=== PATIENT | female | born 2000 | race Native Hawaiian/Other Pacific Islander ===

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

== ENCOUNTER 2019-06-26 01:19 | Emergency (ER) | payer OTHER ==
[2019-06-26 01:38] VITALS: BP 122/88; PULSE 101; O2SAT 98
[2019-06-26] MEDS ORDERED: PERCOCET TABLET 5/325MG ONE (01:43)
[2019-06-26] MEDS ORDERED: BACTRIM DS TABLET PO ONE (01:43)
[2019-06-26] MEDS ORDERED: Rocephin 1000 MG INJ ONE (01:44)
[2019-06-26] MEDS ORDERED: XYLOCAINE 1% HCL 20 ML MDV ONE (01:44)
[2019-06-26] MEDS ORDERED: OXYCODONE-ACETAMINOPHEN 10-325 ONE (01:44)
[2019-06-26] MEDS: PERCOCET TABLET 5/325MG PO STA (01:46)
[2019-06-26] MEDS: BACTRIM DS TABLET PO ONE (01:46)
--- NOTE | 2019-06-26 01:46 | ERPHSYRPT ---
- History of Present Illness Time Seen by Provider: 06/26/19 01:35 Source: patient Exam Limitations: no limitations Patient Subjective Stated Complaint: Abscess to coccyx Triage Nursing Assessment: Patient ambulated into ED and states she is unable to sit or lay in a bed due to the pain. Patient A+O X3. Patient's skin pink, warm and dry. Patient complains of abscess to coccyx for one week. Patient states pain is constant stabbing 10/10. red raised area noted to coccyx with hard area. Physician History: 19 y/o white female presents with tenderness and swelling left buttock area. no drainage. present for a week. pt is not a diabetic. denies fever. Timing/Duration: week(s) (1) Quality: painful Severity: moderate Location: other (left buttock) Associated Symptoms: swelling/mass/lumps (left buttock) Allergies/Adverse Reactions: No Known Drug Allergies Allergy (Verified 06/26/19 01:30) Hx Tetanus, Diphtheria Vaccination/Date Given: Yes Hx Influenza Vaccination/Date Given: No Hx Pneumococcal Vaccination/Date Given: No Immunizations Up to Date: Yes - Review of Systems Constitutional: No Symptoms Eyes: No Symptoms Ears, Nose, & Throat: No Symptoms Respiratory: No Symptoms Cardiac: No Symptoms Abdominal/Gastrointestinal: No Symptoms Genitourinary Symptoms: No Symptoms Musculoskeletal: No Symptoms Skin: Cellulitis, Induration, Other (left buttock) Neurological: No Symptoms Psychological: No Symptoms Endocrine: No Symptoms Hematologic/Lymphatic: No Symptoms Immunological/Allergic: No Symptoms All Other Systems: Reviewed and Negative - Past Medical History Pertinent Past Medical History: No Neurological History: No Pertinent History ENT History: No Pertinent History Cardiac History: No Pertinent History Respiratory History: No Pertinent History Endocrine Medical History: No Pertinent History Musculoskeletal History: No Pertinent History GI Medical History: No Pertinent History History: No Pertinent History Psycho-Social History: No Pertinent History Female Reproductive Disorders: No Pertinent History - Past Surgical History Past Surgical History: Yes Neuro Surgical History: No Pertinent History Cardiac: No Pertinent History Respiratory: No Pertinent History Gastrointestinal: No Pertinent History Genitourinary: No Pertinent History Other Surgical History: T&A, nasal passages drilled 12 years ago. - Social History Smoking Status: Never smoker Exposure to second hand smoke: Yes Drug Use: none Patient Lives Alone: No - Female History Hx Last Menstrual Period: 2 months ago Hx Now: No - Nursing Vital Signs Nursing Vital Signs: Initial Vital Signs Temperature 97.9 F 06/26/19 01:31 Pulse Rate 101 H 06/26/19 01:31 Respiratory Rate 18 06/26/19 01:31 Blood Pressure 122/88 06/26/19 01:31 O2 Sat by Pulse Oximetry 98 06/26/19 01:31 Pain Scale Pain Intensity 10 - Physical Exam General Appearance: no apparent distress, alert, anxiety Eye Exam: PERRL/EOMI, eyes nml inspection Ears, Nose, Throat Exam: normal ENT inspection, moist mucous membranes Neck Exam: normal inspection, non-tender, supple, full range of motion Respiratory Exam: airway intact, No chest tenderness, No respiratory distress Gastrointestinal/Abdomen Exam: No tenderness Pelvic Exam: not done Rectal Exam: not done Back Exam: normal inspection, normal range of motion, No CVA tenderness, No vertebral tenderness Extremity Exam: normal inspection, normal range of motion, pelvis stable Neurologic Exam: alert, oriented x 3, cooperative, laboratory technologist II-XII nml as tested Skin Exam: other (tender red area of cellulitis without abscess or pus. left buttock indurated. no odor or drainage) SpO2 Interpretation: normal SpO2: 98 O2 Delivery: Room Air - Course Nursing assessment & vital signs reviewed: Yes - Progress Progress: unchanged Counseled pt/family regarding: diagnosis, need for follow-up, rad results - Departure Departure Disposition: Home Clinical Impression: Cellulitis of buttock, left Condition: Stable Critical Care Time: No Referrals: DOCTOR,NO FAMILY [Primary Care Provider] - Additional Instructions: sitz bath with warm soapy water and epsom salts two times daily. may also add warm compresses to area two times daily. return later today for wound check. Prescriptions: Hydrocodone/APAP 5-325 Tab^^^ [[place] 5-325 Tablet^^^] 1 tab PO Q6HPRN PRN #10 tablet MDD 6 PRN Reason: Pain Smz/Tmp Ds Tablet [Bactrim Ds Tablet] 1 udtab PO BID #14 tablet
[2019-06-26] MEDS: Rocephin 1000 MG INJ IM ONE (01:47)
[2019-06-26] MEDS ORDERED: EMLA Cream 5 GM TP ONE (01:50)
[2019-06-26] MEDS: OXYCODONE-ACETAMINOPHEN 10-325 PO STA (01:58)
[2019-06-26] MEDS: EMLA Cream 5 GM TP ONE (02:16)
== END 2019-06-26 02:16 | disposition home or self-care (01) ==
LOC: ED 01:19
DX: L03.317 Cellulitis of buttock (principal)
CPT/HCPCS: 96372; 99283; J0696; A9270-GY

== ENCOUNTER 2019-06-26 16:25 | Emergency (ER) | payer OTHER ==
--- NOTE | 2019-06-26 17:15 | ERPHSYRPT ---
- History of Present Illness Time Seen by Provider: 06/26/19 16:55 Source: patient Exam Limitations: no limitations Patient Subjective Stated Complaint: pt states that she came to er at 0100 on , pt states that she has soaked areaonce but has no relief of pain or drainage , states pain 04/28 Triage Nursing Assessment: pt ambulated into the er, pt has reddness to upper left buttox, scant yellow drainage present, area warm to the touch, vitals wnl Physician History: 19 years old female presented in the ER for reevaluation of swelling but the area/kennedy cleft area. She was evaluated last night, given antibiotics and now she has minimal discharge of yellow color. Pain is fairly controlled with pain medications. She has a temperature of 99 at home. He has been doing sitz bath. Quality: painful Severity: moderate Possible Causes: no cause identified Allergies/Adverse Reactions: No Known Drug Allergies Allergy (Verified 06/26/19 16:44) Hx Tetanus, Diphtheria Vaccination/Date Given: Yes Hx Influenza Vaccination/Date Given: No Hx Pneumococcal Vaccination/Date Given: No - Review of Systems Constitutional: No Symptoms Ears, Nose, & Throat: No Symptoms Respiratory: No Symptoms Cardiac: No Symptoms Abdominal/Gastrointestinal: No Symptoms Musculoskeletal: No Symptoms Skin: Cellulitis, Induration Neurological: No Symptoms - Past Medical History Pertinent Past Medical History: No Neurological History: No Pertinent History ENT History: No Pertinent History Cardiac History: No Pertinent History Respiratory History: No Pertinent History Endocrine Medical History: No Pertinent History Musculoskeletal History: No Pertinent History GI Medical History: No Pertinent History History: No Pertinent History Psycho-Social History: Depression Female Reproductive Disorders: No Pertinent History - Past Surgical History Past Surgical History: Yes Neuro Surgical History: No Pertinent History Cardiac: No Pertinent History Respiratory: No Pertinent History Gastrointestinal: No Pertinent History Genitourinary: No Pertinent History Other Surgical History: T&A, nasal passages drilled 12 years ago. - Social History Smoking Status: Never smoker Exposure to second hand smoke: Yes Drug Use: none Patient Lives Alone: No - Female History Hx Last Menstrual Period: 04/19/19 Hx Now: (possible) - Nursing Vital Signs Nursing Vital Signs: Initial Vital Signs Temperature 99.3 F 06/26/19 16:28 Pulse Rate 115 H 06/26/19 16:28 Blood Pressure 123/86 06/26/19 16:28 O2 Sat by Pulse Oximetry 97 10/08/19 16:28 Pain Scale Pain Intensity 8 - Physical Exam General Appearance: no apparent distress Eye Exam: eyes nml inspection Ears, Nose, Throat Exam: normal ENT inspection Neck Exam: normal inspection Respiratory Exam: normal breath sounds, lungs clear Cardiovascular Exam: regular rate/rhythm, normal heart sounds Back Exam: normal inspection Extremity Exam: normal inspection Neurologic Exam: alert, oriented x 3, cooperative, normal mood/affect Skin Exam: warm, other (swollen kennedy cleft area especially left buttock with erythema. Warm and tender to touch. No fluctuation. No discharge and applied pressure. Although patient has minimal discharge but no active from applying pressure.) SpO2 Interpretation: normal SpO2: 97 O2 Delivery: Room Air - Course Nursing assessment & vital signs reviewed: Yes Ordered Tests: Medication Summary Discontinued Medications Generic Name Dose Route Start Last Admin Trade Name Freq PRN Reason Stop Dose Admin Oxycodone/Acetaminophen 1 tab 06/26/19 17:29 Percocet Tablet 5/325mg PO 06/26/19 17:30 STAT ONE - Progress Progress: unchanged Progress Note: 06/26/19 17:36 she is given Percocet here for pain control. I have offered her incision and drainage but patient wants to try antibiotics first. As of right now she has no definite fever or color does not feel septic. I have discussed in detail about side symptoms are worsening return to ER but she seemed understanding. Recommended outpatient followup. Counseled pt/family regarding: diagnosis, need for follow-up - Departure Departure Disposition: Home Clinical Impression: Cellulitis of buttock, left Condition: Stable Critical Care Time: No Referrals: DOCTOR,NO FAMILY [Primary Care Provider] - Follow Up with PCP (primary care as per recommendations given. Call for appointment tomorrow) Instructions: Skin Abscess Additional Instructions: continue antibiotics and pain medication. Continue sitz baths, warm compresses. Followup with primary care for reevaluation. Return to ER for intractable pain/swelling/redness/fever chills etc.
[2019-06-26] MEDS ORDERED: PERCOCET TABLET 5/325MG ONE (17:32)
[2019-06-26] MEDS: PERCOCET TABLET 5/325MG PO ONE (17:33)
[2019-06-26 17:36] VITALS: BP 116/67
[2019-06-26 18:18] VITALS: PULSE 88; O2SAT 98
== END 2019-06-26 18:20 | disposition home or self-care (01) ==
LOC: ED 16:25
DX: L03.317 Cellulitis of buttock (principal)
CPT/HCPCS: 99283; A9270-GY

== ENCOUNTER 2019-06-28 09:31 | Emergency (ER) | payer OTHER ==
[2019-06-28] MEDS ORDERED: XYLOCAINE 1%/Epi 1:100000 MDV 20 ML ONE (09:40)
[2019-06-28] MEDS ORDERED: XYLOCAINE 1%/Epi 1:100000 MDV 20 ML IJ ONE ×2 (09:51→10:02)
--- NOTE | 2019-06-28 09:57 | ERPHSYRPT ---
- History of Present Illness Time Seen by Provider: 06/28/19 09:50 Source: patient, family, old records Exam Limitations: no limitations Patient Subjective Stated Complaint: pt reports abscess to the buttock for one week, reports she has been seen twice recently and prescribed bactrim. Triage Nursing Assessment: pt is aox3, pupils perrl, afebrile, resps easy and non labored, cap refill < 3 seconds, pt skin pink warm dry. reddened area noted to the coccyx with minimal purulent/serious drainage at this time. wound measures approx 4cm x 2cm. Physician History: pt is a 19 y/o female who presents c/o abscess to buttock x 1 week. on d#3 of bactrim. reports serosanguinous drainage. no purulence. + erythema. no warmth. no fever/chills/n/v/diarrhea. no cp/sob. no improvement on bactrim. has not had labs or imaging. seen in er for same. no prior referral to general surgery. no prior abscesses. no dm pmhx: denies pshx denies meds reviewed all nkda denies tob/etoh/illicits fhx non contrib employed Allergies/Adverse Reactions: No Known Drug Allergies Allergy (Verified 06/28/19 09:52) Hx Tetanus, Diphtheria Vaccination/Date Given: Yes Hx Influenza Vaccination/Date Given: No Hx Pneumococcal Vaccination/Date Given: No Immunizations Up to Date: Yes - Review of Systems Constitutional: No Symptoms, No Fever, No Chills, No Fatigue, No Lethargy, No Malaise, No Night Sweats, No Weakness, No Weight Loss Eyes: No Symptoms, No Discharge, No Eye Pain, No Eye Redness, No Itchy, No Photophobia, No Tearing, No Vision Changes, No Double Vision, No Foreign Body Sensation Ears, Nose, & Throat: No Symptoms, No Ear Pain, No Ear Discharge, No Hearing Changes, No Tinnitus, No Nose Congestion, No Nose Discharge, No Epistaxis, No Mouth Pain, No Mouth Swelling, No Throat Pain, No Throat Swelling, No Hoarse, No Painful Swallowing, No Stridor Respiratory: No Symptoms, No Cough, No Cyanosis, No Dyspnea, No Dyspnea on Exertion (GREEN), No Stridor, No Wheezing Cardiac: No Symptoms, No Chest Pain, No Edema, No Palpitations, No Syncope, No Orthopnea Abdominal/Gastrointestinal: No Symptoms, No Abdominal Pain, No Nausea, No Vomiting, No Diarrhea, No Constipation, No Hematemesis, No Hematochezia, No Melena, No Dysphagia, No Appetite Changes Genitourinary Symptoms: No Symptoms, No Dysuria, No Frequency, No Hematuria, No Hesitancy, No Incontinence, No Urgency, No Urinary Retention, No Flank Pain, No Menorrhagia, No , No Vaginal Bleeding, No Vaginal Discharge Musculoskeletal: No Symptoms, No Arthralgias, No Back Pain, No Neck Pain, No Deformity, No Fall, No Injury, No Joint Redness, No Joint Pain, No Joint Swelling, No Myalgias Skin: No Symptoms, Skin Lesions, No Cellulitis, No Decubiti, No Induration, No Pruritis, No Rash, No Dryness Neurological: No Symptoms, No Dizziness, No Focal Weakness, No Gait Changes, No Headache, No Irritability, No Lethargy, No Paralysis, No Parasthesia, No Seizure , No Sensory Changes, No Speech Changes, No Tics, No Tremors, No Vertigo Psychological: No Symptoms, No Alcohol Abuse, No Drug Abuse, No Anxiety, No Depression, No Suicidal Ideations, No Homicidal Ideations, No Emotional Lability , No Hallucinations, No Memory Loss, No Mood Changes Endocrine: No Symptoms, No Polyuria, No Polydipsia, No Hair Changes, No Cold Intolerance, No Excessive Sweating, No Goiter Hematologic/Lymphatic: No Symptoms, No Anemia, No Blood Clots, No Easy Bleeding , No Gum Bleeding, No Easy Bruising, No Adenopathy Immunological/Allergic: No Symptoms All Other Systems: Reviewed and Negative - Past Medical History Pertinent Past Medical History: No Neurological History: No Pertinent History ENT History: No Pertinent History Cardiac History: No Pertinent History Respiratory History: No Pertinent History Endocrine Medical History: No Pertinent History Musculoskeletal History: No Pertinent History GI Medical History: No Pertinent History History: No Pertinent History Psycho-Social History: Depression Female Reproductive Disorders: No Pertinent History - Past Surgical History Past Surgical History: Yes Neuro Surgical History: No Pertinent History Cardiac: No Pertinent History Respiratory: No Pertinent History Gastrointestinal: No Pertinent History Genitourinary: No Pertinent History Other Surgical History: T&A, nasal passages drilled 12 years ago. - Social History Smoking Status: Never smoker Exposure to second hand smoke: Yes Drug Use: none Patient Lives Alone: No - Female History Hx Last Menstrual Period: 04/19/19 Hx Now: (unk) - Nursing Vital Signs Nursing Vital Signs: Initial Vital Signs Temperature 98.0 F 06/28/19 09:36 Pulse Rate 93 H 06/28/19 09:36 Respiratory Rate 18 06/28/19 09:36 Blood Pressure 126/91 06/28/19 09:36 O2 Sat by Pulse Oximetry 98 06/28/19 09:36 Pain Scale Pain Intensity 9 - Physical Exam General Appearance: no apparent distress, alert Eye Exam: PERRL/EOMI, eyes nml inspection, other (fundi normal roman), No scleral icterus, No pale conjunctivae, No photophobia, No EOM palsy/anisocoria Ears, Nose, Throat Exam: normal ENT inspection, TMs normal, pharynx normal, TM abnormal (L), other (uvula midline, floor of mouth soft), No moist mucous membranes, No dry mucous membranes, No TM abnormal (R), No pharyngeal erythema, No tonsillar exudate Neck Exam: normal inspection, non-tender, supple, full range of motion, No meningismus, No mass, No Brudzinski, No Kernig's, No carotid bruit, No JVD, No limited range of motion, No lymphadenopathy, No midline tenderness, No thyromegaly Respiratory Exam: normal breath sounds, lungs clear, airway intact, No chest tenderness, No respiratory distress, No diminished breath sounds, No accessory muscle use, No prolonged expirations, No crackles/rales, No rhonchi, No wheezing , No stridor, No pleural rub Cardiovascular Exam: regular rate/rhythm, normal heart sounds, normal peripheral pulses, capillary refill <2 sec, No murmur, No friction rub, No gallop, No tachycardia, No bradycardia, No irregular, No capillary refill 2-3 sec, No capillary refill >3 sec, No edema, No pulse deficit Gastrointestinal/Abdomen Exam: soft, normal bowel sounds, No tenderness, No distention, No mass, No guarding, No ecchymosis, No pulsatile mass, No rebound, No hernia, No hepatomegaly, No organomegaly, No splenomegaly, No bruit Pelvic Exam: normal external exam Rectal Exam: deferred, other (pilonidal cyst v abscess with mild erythema, induration, no warmth, minimal fluctuance) Back Exam: normal inspection, normal range of motion, other (neg slr roman, no sacral anesthesia, dtr 2/4 roman patella), No CVA tenderness, No vertebral tenderness, No rash, No decreased range of motion, No muscle spasm, No point tenderness Extremity Exam: normal inspection, normal range of motion, pelvis stable, No amputations, No contusions, No calf tenderness, No deformities, No lacerations, No parasthesia, No paralysis, No inflammation, No joint swelling, No limited range of motion, No pedal edema, No swelling, No tenderness Neurologic Exam: alert, oriented x 3, cooperative, 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, normal mood/affect, nml cerebellar function, nml station & gait, sensation nml, No motor deficits, No sensory deficit, No disoriented, No confusion, No agitation, No uncooperative, No intoxicated appearance, No depressed mood/affect , No motor weakness, No facial droop, No slurred speech, No aphasia, No dysarthria, No abnormal gait, No abnormal cerebellar tests, No abnormal van driver helper II- XII, No EOM palsy Skin Exam: normal color, warm, dry, No rash, No petechiae, No jaundice, No abrasion, No cyanosis, No diaphoresis, No decubitus, No embolic lesions, No ecchymosis, No jaundice, No laceration, No mottled, No pale Lymphatic Exam: No adenopathy SpO2 Interpretation: normal SpO2: 98 O2 Delivery: Room Air Procedures - Incision and Drainage Anesthesia: 1% lidocaine w/epi cc's of anesthesia: 2 Blade Size: 10 I & D Procedure: sterile drapes applied, sterile dressing applied, gauze wick placed Results: small amount pus - Course Nursing assessment & vital signs reviewed: Yes Ordered Tests: Medication Summary Discontinued Medications Generic Name Dose Route Start Last Admin Trade Name Jessica PRN Reason Stop Dose Admin Lidocaine/Epinephrine Confirm 06/28/19 09:40 Xylocaine 1%/Epi [id number] Mdv 20 Ml Administered 06/28/19 09:41 Dose 5 ml .ROUTE .[facility] ONE Lidocaine/Epinephrine 5 ml 06/28/19 09:51 Xylocaine 1%/Epi [id number] Mdv 20 Ml IJ 06/28/19 09:52 STAT ONE - Progress Progress: unchanged (findings reviewed with pt. minimal pus. suspect pilonidal cyst. recommend fup gen surgery , cont bactrim. tylenol and motrin for discomfort. all questions answered to pt and family satisfaction) Counseled pt/family regarding: drug and/or alcohol abuse, lab results, diagnosis , need for follow-up, rad results, smoking cessation - Departure Departure Disposition: Home Clinical Impression: Pilonidal cyst Condition: Good Critical Care Time: No Referrals: DOCTOR,NO FAMILY [Primary Care Provider] - (DR. MADRID, GENERAL SURGERY 2-3 DAYS FOR RE-EVALUATION) Additional Instructions: TO ER IF INCREASED PURULENT DRAINAGE, FEVER OVER 102, INCREASED SIZE OF LESION CONTINUE BACTRIM TYLENOL AND MOTRIN FOR DISCOMFORT SITZ BATHS 2-3 X A DAY PLEASE FOLLOW UP WITH DR. MADRID OF GENERAL SURGERY FOR RE-EVALUATION AND DEFINITIVE CARE
[2019-06-28 10:48] VITALS: BP 122/67; PULSE 82; O2SAT 100
== END 2019-06-28 10:44 | disposition home or self-care (01) ==
LOC: ED 09:31
DX: L05.01 Pilonidal cyst with abscess (principal)
CPT/HCPCS: 10080; 82962; 96372; 99283

== ENCOUNTER 2019-09-30 11:45 | Emergency (ER) | payer MEDICAID, OTHER ==
--- NOTE | 2019-09-30 11:54 | ERPHSYRPT ---
- History of Present Illness Time Seen by Provider: 09/30/19 11:54 Source: patient Exam Limitations: no limitations Physician History: The patient is a 19-year-old female with a past history significant for a prior episode of low back pain in June 2019 percent with a chief complaint of low back pain. Onset reportedly was 2 weeks ago. The pain is described as a sharp pain located to the paralumbar spinous region of her back that radiates up her back is constant and is mild to moderate severity. She did take an ibuprofen as well as Tylenol intermittently with no reported relief of the pain. The pain increases with bending and twisting of her torso. She denies spread slightly to her back pain to include recent traumatic injury, fever, chills, bladder or bowel continence, anticoagulant use, malignancy, CVA, weight loss and night sweats. She denies lower extremity symptoms to include weakness numbness and paresthesias. 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 Allergies/Adverse Reactions: No Known Drug Allergies Allergy (Verified 06/28/19 09:52) Home Medications: Venlafaxine HCl 37.5 mg [Effexor 37.5 mg] 37.5 mg PO DAILY 09/30/19 [ History] Hx Tetanus, Diphtheria Vaccination/Date Given: Yes Hx Influenza Vaccination/Date Given: No Hx Pneumococcal Vaccination/Date Given: No - Review of Systems Constitutional: No Fever, No Chills Eyes: No Symptoms Ears, Nose, & Throat: No Symptoms Respiratory: No Symptoms Cardiac: No Symptoms Abdominal/Gastrointestinal: No Abdominal Pain, No Nausea, No Vomiting Genitourinary Symptoms: No Dysuria, No Frequency, No Hematuria, No Hesitancy, No Incontinence, No Urgency, No Urinary Retention, No Flank Pain, No Vaginal Bleeding, No Vaginal Discharge Musculoskeletal: Back Pain, No Neck Pain, No Deformity, No Fall, No Injury Skin: No Symptoms Neurological: No Focal Weakness, No Gait Changes, No Sensory Changes Psychological: No Symptoms Immunological/Allergic: No Symptoms All Other Systems: Reviewed and Negative - Past Medical History Pertinent Past Medical History: Yes Neurological History: No Pertinent History ENT History: No Pertinent History Cardiac History: No Pertinent History Respiratory History: No Pertinent History Endocrine Medical History: No Pertinent History Musculoskeletal History: No Pertinent History GI Medical History: No Pertinent History History: No Pertinent History Psycho-Social History: Depression Female Reproductive Disorders: No Pertinent History - Past Surgical History Past Surgical History: Yes Neuro Surgical History: No Pertinent History Cardiac: No Pertinent History Respiratory: No Pertinent History Gastrointestinal: No Pertinent History Genitourinary: No Pertinent History Other Surgical History: T&A, nasal passages drilled 12 years ago. - Social History Smoking Status: Never smoker Exposure to second hand smoke: Yes Drug Use: none Patient Lives Alone: No - Nursing Vital Signs Nursing Vital Signs: Initial Vital Signs Temperature 98.8 F 09/30/19 11:50 Pulse Rate 90 09/30/19 11:50 Respiratory Rate 18 09/30/19 11:50 Blood Pressure 129/76 09/30/19 11:50 O2 Sat by Pulse Oximetry 99 09/30/19 11:50 Pain Scale Pain Intensity [Lower Back] 8 Pain Intensity 4 - Physical Exam General Appearance: no apparent distress Eye Exam: PERRL/EOMI, eyes nml inspection Ears, Nose, Throat Exam: normal ENT inspection Neck Exam: normal inspection Respiratory Exam: normal breath sounds, lungs clear, No chest tenderness, No respiratory distress Cardiovascular Exam: regular rate/rhythm, normal heart sounds, capillary refill <2 sec, No murmur, No friction rub, No gallop, No tachycardia Gastrointestinal/Abdomen Exam: soft, normal bowel sounds, No tenderness Pelvic Exam: not done Rectal Exam: deferred Back Exam: other (Mild bilateral lumbar paraspinous tenderness. No midline spine tenderness, no flank ecchymosis) Extremity Exam: normal inspection, other (Hip flexion 4 + bilaterally, knee extension 4+bilaterally, dorsiflexion and plantar flexion 4+ bilaterally, patient able to stand on the tips of her toes, increased pain in back with back flexion), No pedal edema, No swelling, No tenderness Neurologic Exam: alert, oriented x 3, cooperative, normal mood/affect, other ( Sensation to gross touch intact in the L4, L5, and S1 nerve distribution, no ankle clonus, patellar reflex 2+ bilaterally, unable to illicit ankle reflexes. Negative straight leg test.) Skin Exam: normal color, warm, dry, No rash, No petechiae, No jaundice SpO2 Interpretation: normal O2 Delivery: Room Air Ordered Tests: Active Orders 24 hr Category Date Time Status HCG,QUALITATIVE URINE Stat Lab 09/30/19 12:03 Completed UA W/RFX UR CULTURE Stat Lab 09/30/19 12:03 Completed Medication Summary Discontinued Medications Generic Name Dose Route Start Last Admin Trade Name Jessica PRN Reason Stop Dose Admin Hydrocodone Bitart/Acetaminophen 1 tab 09/30/19 12:37 09/30/19 12:43 [place] 5/325 Mg PO 09/30/19 12:38 1 tab STAT ONE Administration Hydrocodone Bitart/Acetaminophen Confirm 09/30/19 12:41 [place] 5/325 Mg Administered 09/30/19 12:42 Dose 1 tab .ROUTE .[facility] ONE Hydromorphone HCl 0.5 mg 09/30/19 12:37 09/30/19 12:43 Hydromorphone 1 Mg/Ml Ampule IM 09/30/19 12:38 0.5 mg STAT ONE Administration Hydromorphone HCl Confirm 09/30/19 12:41 Hydromorphone 1 Mg/Ml Ampule Administered 09/30/19 12:42 Dose 1 mg .ROUTE .STK-[facility] ONE Ketorolac Tromethamine 15 mg 09/30/19 12:37 09/30/19 12:42 Toradol 30 Mg Injection IM 09/30/19 12:38 15 mg STAT ONE Administration Ketorolac Tromethamine Confirm 09/30/19 12:40 Toradol 30 Mg Injection Administered 09/30/19 12:41 Dose 30 mg .ROUTE .STK-MED ONE Ondansetron HCl 4 mg 09/30/19 12:38 09/30/19 12:43 Zofran Odt 4 Mg PO 09/30/19 12:39 4 mg STAT ONE Administration Ondansetron HCl Confirm 09/30/19 12:40 Zofran Odt 4 Mg Administered 09/30/19 12:41 Dose 4 mg .ROUTE .STK-[facility] ONE Lab/Rad Data: Laboratory Results 09/30/19 09/30/19 Range/Units 12:03 12:03 Urine Color YELLOW (YELLOW) Urine Appearance SLIGHTLY CLOUDY (CLEAR) Urine pH 5.0 (5-6) Ur Specific [place] 1.018 (1.005-1.025) Urine Protein NEGATIVE (Negative) Urine Ketones TRACE (NEGATIVE) Urine Blood LARGE (0-5) Deejay/ul Urine Nitrite NEGATIVE (NEGATIVE) Urine Bilirubin NEGATIVE (NEGATIVE) Urine Urobilinogen NEGATIVE (0-1) mg/dL Ur Leukocyte Esterase NEGATIVE (NEGATIVE) Urine WBC (Auto) 3-5 (0-5) /HPF Urine RBC (Auto) NONE (0-2) /HPF U Epithel Cells (Auto) RARE (FEW) /HPF Urine Bacteria (Auto) NONE SEEN (NEGATIVE) /HPF Urine Mucus (Auto) SLIGHT (NEGATIVE) /HPF Urine Culture Reflexed NO (NO) Urine Glucose NEGATIVE (NEGATIVE) mg/dL Urine HCG, Qual NEGATIVE (Negative) - Progress Progress: improved Counseled pt/family regarding: lab results, diagnosis, need for follow-up - Departure Departure Disposition: Home Clinical Impression: Back pain, Strain of lumbar paraspinal muscle Condition: Stable Critical Care Time: No Referrals: DOCTOR,NO FAMILY [Primary Care Provider] - Instructions: Low Back Pain (DC) Plan of Treatment: nontoxic in appearance. The patient presents with low back pain with no red flags for LORRAINE, spinal epidural abscess or spinal cord hematoma. Pain resolved with symptomatic treatment in ED. Patient will be treated with conservative management and I recommended she follow-up with her PCP to arrange outpatient PT. ED return precautions for back pain given. She agreed with and verbally understood the discharge plan. Prescriptions: Hydrocodone/APAP 5-325 Tab^^^ [[place] 5-325 Tablet^^^] 1 tab PO Q6HPRN PRN #10 tablet MDD 6 PRN Reason: Pain Lidocaine 1 each TP DAILY #20 adh..patch Naproxen 500 mg [Naprosyn 500 MG] 500 mg PO BID #10 tablet
[2019-09-30 12:11] LABS: Appearance SLIGHTLY CLOUDY (CLEAR); Bilirubin NEGATIVE (NEGATIVE); Blood LARGE Ery/ul (0-5); Epithelial Cells RARE /HPF (FEW); Glucose NEGATIVE (NEGATIVE); Ketones TRACE (NEGATIVE); Leukocyte Esterase NEGATIVE (NEGATIVE); Mucus SLIGHT /HPF (NEGATIVE); Nitrite NEGATIVE (NEGATIVE); Protein,Urine Dip NEGATIVE (Negative); Specific Gravity 1.018 (1.005-1.025); Urobilinogen NEGATIVE mg/dL (0-1)
[2019-09-30 12:13] LABS: Bacteria NONE SEEN /HPF (NEGATIVE)
[2019-09-30] MEDS ORDERED: Hydromorphone 1 mg/ml Ampule IM ONE (12:37)
[2019-09-30] MEDS ORDERED: NORCO 5/325 MG PO ONE (12:37)
[2019-09-30] MEDS ORDERED: TORAdol 30 mg Injection IM ONE (12:37)
[2019-09-30 12:38] VITALS: PULSE 81
[2019-09-30] MEDS ORDERED: ZOFRAN ODT 4 MG PO ONE (12:38)
[2019-09-30] MEDS ORDERED: TORAdol 30 mg Injection ONE (12:40)
[2019-09-30] MEDS ORDERED: ZOFRAN ODT 4 MG ONE (12:40)
[2019-09-30] MEDS ORDERED: Hydromorphone 1 mg/ml Ampule ONE (12:41)
[2019-09-30] MEDS ORDERED: NORCO 5/325 MG ONE (12:41)
[2019-09-30 13:06] VITALS: BP 126/82; O2SAT 96
== END 2019-09-30 13:15 | disposition home or self-care (01) ==
LOC: ED 11:45
DX: M54.5 Low back pain (principal); S39.012A Strain of muscle, fascia and tendon of lower back, initial encounter; Z79.899 Other long term (current) drug therapy
CPT/HCPCS: 81001; 84703; 96372; 99284; J1170; J1885; Q0162; A9270-GY

== ENCOUNTER 2020-09-14 00:56 | Emergency (ER) | payer OTHER ==
--- NOTE | 2020-09-14 01:41 | ERPHSYRPT ---
- History of Present Illness Time Seen by Provider: 09/14/20 01:36 Historian: patient, family Exam Limitations: no limitations Patient Subjective Stated Complaint: pt states she has been vomiting for the last 4 days. states she is approx 5 weeks . Triage Nursing Assessment: pt alert and oriented, answers questions approp. pt ambulatory with steady gait noted. respirations nonlabored with lungs cta. skin pink warm and dry. pt states no vaginal bleeding or spotting. Physician History: pt estimates 5 weeks by period and has had N/V x 5 days. some abd cramping without bleeding . prior miscarriage at 10 weeks. discussed risk/benefit of ondansitron vs phenergan and also metaclopramide ( due to interaction with her other meds with metaclopramide, ) and pt chooses phenergan first then metaclopramide if not sucessful ( she has been off of her antidepressant for 5 weeks - so no longer an interaction.. Timing/Duration: day(s) Activities at Onset: none Quality: cramping Abdominal Pain Onset Location: RLQ, LLQ Pain Radiation: RLQ, LLQ Severity of Pain-Max: mild Modifying Factors: Improves With: nothing Associated Symptoms: nausea, vomiting Previous symptoms: no prior history Allergies/Adverse Reactions: No Known Drug Allergies Allergy (Verified 09/14/20 01:36) Hx Tetanus, Diphtheria Vaccination/Date Given: Yes Hx Influenza Vaccination/Date Given: Yes Hx Pneumococcal Vaccination/Date Given: No Immunizations Up to Date: Yes Travel Risk - International Travel Have you traveled outside of the country in past 3 weeks: No - Coronavirus Screening Are you exhibiting any of the following symptoms?: No Close contact with a COVID-19 positive Pt in past 14-21 Days: No - Review of Systems Constitutional: No Fever, No Chills Eyes: No Symptoms Ears, Nose, & Throat: No Symptoms Respiratory: No Cough, No Dyspnea Cardiac: No Chest Pain, No Edema, No Syncope Abdominal/Gastrointestinal: Nausea, Vomiting, No Abdominal Pain, No Diarrhea Genitourinary Symptoms: No Dysuria Musculoskeletal: No Back Pain, No Neck Pain Skin: No Rash Neurological: No Dizziness, No Focal Weakness, No Sensory Changes Psychological: No Symptoms Endocrine: No Symptoms Hematologic/Lymphatic: No Symptoms Immunological/Allergic: No Symptoms All Other Systems: Reviewed and Negative - Past Medical History Pertinent Past Medical History: Yes Neurological History: No Pertinent History ENT History: No Pertinent History Cardiac History: No Pertinent History Respiratory History: No Pertinent History Endocrine Medical History: No Pertinent History Musculoskeletal History: No Pertinent History GI Medical History: No Pertinent History History: No Pertinent History Psycho-Social History: Depression Female Reproductive Disorders: No Pertinent History - Past Surgical History Past Surgical History: Yes Neuro Surgical History: No Pertinent History Cardiac: No Pertinent History Respiratory: No Pertinent History Gastrointestinal: No Pertinent History Genitourinary: No Pertinent History Other Surgical History: T&A, nasal passages drilled 12 years ago. - Social History Smoking Status: Never smoker How long have you smoked: years Exposure to second hand smoke: Yes Drug Use: none Patient Lives Alone: No - Female History Hx Last Menstrual Period: 08/07/20 Hx Now: Yes Gestational Age: approx 5wk - Nursing Vital Signs Nursing Vital Signs: Initial Vital Signs Temperature 98.2 F 09/14/20 01:18 Pulse Rate 99 H 09/14/20 01:18 Respiratory Rate 18 09/14/20 01:18 Blood Pressure 124/82 09/14/20 01:18 O2 Sat by Pulse Oximetry 100 09/14/20 01:18 Pain Scale Pain Intensity 0 - Physical Exam General Appearance: no apparent distress, alert Eye Exam: PERRL/EOMI, eyes nml inspection Ears, Nose, Throat Exam: normal ENT inspection, pharynx normal, moist mucous membranes Neck Exam: normal inspection, non-tender, supple, full range of motion Respiratory Exam: normal breath sounds, lungs clear, No respiratory distress Cardiovascular Exam: regular rate/rhythm, normal heart sounds Gastrointestinal/Abdomen Exam: soft, No tenderness, No mass Pelvic Exam: deferred Rectal Exam: deferred Back Exam: normal inspection, normal range of motion, No CVA tenderness, No vertebral tenderness Extremity Exam: normal inspection, normal range of motion, pelvis stable Neurologic Exam: alert, oriented x 3, cooperative, normal mood/affect, nml cerebellar function, sensation nml, No motor deficits Skin Exam: normal color, warm, dry SpO2 Interpretation: normal SpO2: 100 O2 Delivery: Room Air - Course Nursing assessment & vital signs reviewed: Yes - Radiology Ultrasound Exam OB Ultrasound: IUP, Other (ovarian cyst, no ectopics reported) Ordered Tests: Active Orders 24 hr Category Date Time Status IV Insertion STAT Care 09/14/20 01:42 Active OB <14 WKS 1ST GESTATION [US] Stat Exams 09/14/20 01:45 Taken OB TRANSVAGINAL [US] Stat Exams 09/14/20 03:12 Taken AMYLASE Stat Lab 09/14/20 02:32 Completed CBC W DIFF Stat Lab 09/14/20 02:32 Completed CMP Stat Lab 09/14/20 02:32 Completed HCG, Quantitative (Inhouse) Stat Lab 09/14/20 02:32 Completed LIPASE Stat Lab 09/14/20 02:32 Completed Lactic Acid Stat Lab 09/14/20 02:28 Completed UA W/RFX UR CULTURE Stat Lab 09/14/20 02:16 Completed Medication Summary Discontinued Medications Generic Name Dose Route Start Last Admin Trade Name Freq PRN Reason Stop Dose Admin Dicyclomine HCl 20 mg 09/14/20 03:15 09/14/20 03:53 Bentyl 20 Mg PO 09/14/20 03:16 20 mg STAT ONE Administration Dicyclomine HCl Confirm 09/14/20 03:30 Bentyl 20 Mg Administered 09/14/20 03:31 Dose 20 mg .ROUTE .STK-MED ONE Sodium Chloride 1,000 mls @ 999 mls/hr 09/14/20 01:42 Sodium Chloride 0.9% 1000 Ml IV 09/14/20 02:42 .Q1H1M STA Ondansetron HCl 4 mg 09/14/20 01:42 Zofran 4 Mg/2 Ml Vial IV 09/14/20 01:43 STAT ONE Promethazine HCl 50 mg 09/14/20 02:04 09/14/20 02:07 Phenergan 25 Mg Inj IM 09/14/20 02:05 50 mg STAT ONE Administration Promethazine HCl Confirm 09/14/20 02:06 Phenergan 25 Mg Inj Administered 09/14/20 02:07 Dose 50 mg .ROUTE .STK-MED ONE Promethazine HCl Confirm 09/14/20 02:21 Phenergan 25 Mg Inj Administered 09/14/20 02:22 Dose 50 mg .ROUTE .STK-MED ONE Lab/Rad Data: Laboratory Result Diagrams 09/14/20 02:32 09/14/20 02:32 Laboratory Results 12/27/20 12/27/20 12/27/20 Range/Units 02:32 02:32 02:32 WBC 9.5 (4.0-10.5) K/mm3 RBC 4.07 L (4.1-5.4) M/mm3 Hgb 13.3 (12.0-16.0) gm/dl Hct 37.8 (35-47) % MCV 92.9 (78-100) fl MCH 32.7 H (26-32) pg MCHC 35.2 (32-36) g/dl RDW 11.9 (11.5-14.0) % Plt Count 233 (150-450) K/mm3 MPV 10.9 (7.5-11.0) fl Gran % 72.7 H (36.0-66.0) % Eos # (Auto) 0.03 (0-0.5) Absolute Lymphs (auto) 1.76 (1.0-4.6) Absolute Monos (auto) 0.80 (0.0-1.3) Lymphocytes % 18.5 L (24.0-44.0) % Monocytes % 8.4 (0.0-12.0) % Eosinophils % 0.3 (0.00-5.0) % Basophils % 0.1 (0.0-0.4) % Absolute Granulocytes 6.93 H (1.4-6.9) Basophils # 0.01 (0-0.4) Sodium 136 L (137-145) mmol/L Potassium 3.6 (3.5-5.1) mmol/L Chloride 103 (98-107) mmol/L Carbon Dioxide 22 (22-30) mmol/L Anion Gap 14.7 (5-15) MEQ/L BUN 9 (7-17) mg/dL Creatinine 0.70 (0.52-1.04) mg/dL Estimated GFR > 60.0 ML/MIN Glucose 92 (74-106) mg/dL Lactic Acid (0.4-2.0) Calcium 9.4 (8.4-10.2) mg/dL Total Bilirubin 0.30 (0.2-1.3) mg/dL AST 28 (14-36) U/L ALT 21 (0-35) U/L Alkaline Phosphatase 42 (38-126) U/L Serum Total Protein 7.7 (6.3-8.2) g/dL Albumin 4.6 (3.5-5.0) g/dL Amylase 65 (30-110) U/L Lipase 87 (23-300) U/L Beta HCG, Quant 27912 mIU/ml Urine Color (YELLOW) Urine Appearance (CLEAR) Urine pH (5-6) Ur Specific [place] (1.005-1.025) Urine Protein (Negative) Urine Ketones (NEGATIVE) Urine Blood (0-5) Deejay/ul Urine Nitrite (NEGATIVE) Urine Bilirubin (NEGATIVE) Urine Urobilinogen (0-1) mg/dL Ur Leukocyte Esterase (NEGATIVE) Urine WBC (Auto) (0-5) /HPF Urine RBC (Auto) (0-2) /HPF U Epithel Cells (Auto) (FEW) /HPF Urine Bacteria (Auto) (NEGATIVE) /HPF Calcium Oxalate Crystal (NEGATIVE) /HPF Urine Mucus (Auto) (NEGATIVE) /HPF Urine Culture Reflexed (NO) Urine Glucose (NEGATIVE) mg/dL 09/14/20 09/14/20 Range/Units 02:28 02:16 WBC (4.0-10.5) K/mm3 RBC (4.1-5.4) M/mm3 Hgb (12.0-16.0) gm/dl Hct (35-47) % MCV (78-100) fl MCH (26-32) pg MCHC (32-36) g/dl RDW (11.5-14.0) % Plt Count (150-450) K/mm3 MPV (7.5-11.0) fl Gran % (36.0-66.0) % Eos # (Auto) (0-0.5) Absolute Lymphs (auto) (1.0-4.6) Absolute Monos (auto) (0.0-1.3) Lymphocytes % (24.0-44.0) % Monocytes % (0.0-12.0) % Eosinophils % (0.00-5.0) % Basophils % (0.0-0.4) % Absolute Granulocytes (1.4-6.9) Basophils # (0-0.4) Sodium (137-145) mmol/L Potassium (3.5-5.1) mmol/L Chloride (98-107) mmol/L Carbon Dioxide (22-30) mmol/L Anion Gap (5-15) MEQ/L BUN (7-17) mg/dL Creatinine (0.52-1.04) mg/dL Estimated GFR ML/MIN Glucose (74-106) mg/dL Lactic Acid 0.8 (0.4-2.0) Calcium (8.4-10.2) mg/dL Total Bilirubin (0.2-1.3) mg/dL AST (14-36) U/L ALT (0-35) U/L Alkaline Phosphatase (38-126) U/L Serum Total Protein (6.3-8.2) g/dL Albumin (3.5-5.0) g/dL Amylase (30-110) U/L Lipase (23-300) U/L Beta HCG, Quant mIU/ml Urine Color DARK YELLOW (YELLOW) Urine Appearance SLIGHTLY CLOUDY (CLEAR) Urine pH 5.0 (5-6) Ur Specific [place] 1.032 (1.005-1.025) Urine Protein 100 (Negative) Urine Ketones MODERATE (NEGATIVE) Urine Blood NEGATIVE (0-5) Deejay/ul Urine Nitrite NEGATIVE (NEGATIVE) Urine Bilirubin NEGATIVE (NEGATIVE) Urine Urobilinogen 2 (0-1) mg/dL Ur Leukocyte Esterase NEGATIVE (NEGATIVE) Urine WBC (Auto) 6-10 (0-5) /HPF Urine RBC (Auto) 3-5 (0-2) /HPF U Epithel Cells (Auto) RARE (FEW) /HPF Urine Bacteria (Auto) RARE (NEGATIVE) /HPF Calcium Oxalate Crystal 6-10 (NEGATIVE) /HPF Urine Mucus (Auto) SLIGHT (NEGATIVE) /HPF Urine Culture Reflexed NO (NO) Urine Glucose NEGATIVE (NEGATIVE) mg/dL - Progress Progress: improved, re-examined Progress Note: 09/14/20 04:[address] Michael and pt, and now that vomiting has subsided and pt wishes to try fluids and oral dicyclomine at home rather than furhter obs in hosp/IV. and she has the capacity to make that choice. She will followup on Sep [address] Michael or meantime if not improving . Discussed with : Rogelio, Other Counseled pt/family regarding: lab results, diagnosis, need for follow-up, rad results - Departure Departure Disposition: Home Clinical Impression: Vomiting during Condition: Good Critical Care Time: No Referrals: CANDICE MICHAEL DO [Primary Care Provider] - Instructions: Nausea and Vomiting of (DC) Additional Instructions: take clear liquids and crackers as tolerated today, and new medicine as prescribed. Plan to see your OB as planned. Return meantime if not improving, vomiting continues, abdominal pain , bleeding or any other concerns. Followup urine which had slight protein ( there are slight increased white cells which is sometimes early infection) and ovarian cyst with your Dr. as well. Prescriptions: Doxylamine Succinate/Vit B6 [Tulio Her 10-10 mg Tablet] 1 each PO BID #30 tablet.
[2020-09-14] MEDS ORDERED: Sodium Chloride 0.9% 1000 ML 1,000 ML IV STA ×3 (01:42→07:31)
[2020-09-14] MEDS ORDERED: Zofran 4 MG/2 ML VIAL IV ONE ×2 (01:42→06:49)
[2020-09-14] MEDS ORDERED: Phenergan 25 MG INJ IM ONE (02:04)
[2020-09-14] MEDS ORDERED: Phenergan 25 MG INJ ONE ×3 (02:06→05:07)
[2020-09-14 02:34] LABS: Absolute Neutrophil Ct (ANC) 6.93 (1.4-6.9); BASOPHIL % 0.1 % (0.0-0.4); Basophil (Absolute #) 0.01 (0-0.4); Eosinophil % 0.3 % (0.00-5.0); Eosinophil (Absolute #) 0.03 (0-0.5); Hematocrit 37.8 % (35-47); Hemoglobin 13.3 gm/dl (12.0-16.0); Lymphocyte (Absolute #) 1.76 (1.0-4.6); Lymphocytes % 18.5 % (24.0-44.0); Mean Cell Volume 92.9 fl (78-100); Mean Corpuscular Hemoglobin 32.7 pg (26-32); Mean Corpuscular Hgb Concent. 35.2 g/dl (32-36); Mean Platelet Volume 10.9 fl (7.5-11.0); Monocytes % 8.4 % (0.0-12.0); Neutrophil % 72.7 % (36.0-66.0); Platelet Count 233 K/mm3 (150-450); Red Blood Count 4.07 M/mm3 (4.1-5.4); Red Cell Distribution Width 11.9 % (11.5-14.0); White Blood Count 9.5 K/mm3 (4.0-10.5)
[2020-09-14 02:43] LABS: Appearance SLIGHTLY CLOUDY (CLEAR); Bacteria RARE /HPF (NEGATIVE); Bilirubin NEGATIVE (NEGATIVE); Blood NEGATIVE Ery/ul (0-5); Epithelial Cells RARE /HPF (FEW); Glucose NEGATIVE (NEGATIVE); Ketones MODERATE (NEGATIVE); Leukocyte Esterase NEGATIVE (NEGATIVE); Mucus SLIGHT /HPF (NEGATIVE); Nitrite NEGATIVE (NEGATIVE); Protein,Urine Dip 100 (Negative); Specific Gravity 1.032 (1.005-1.025); Urobilinogen 2 mg/dL (0-1)
[2020-09-14 02:49] LABS: ALBUMIN 4.6 g/dL (3.5-5.0); ALKALINE PHOSPHATASE 42 U/L (38-126); AMYLASE 65 U/L (30-110); ANION GAP 14.7 MEQ/L (5-15); BLOOD UREA NITROGEN 9 mg/dL (7-17); CHLORIDE 103 mmol/L (98-107); Calcium 9.4 mg/dL (8.4-10.2); Carbon Dioxide 22 mmol/L (22-30); EST GLOMERULAR FILTRATION RATE > 60.0 ML/MIN; Glucose 92 mg/dL (74-106); LIPASE 87 U/L (23-300); Potassium 3.6 mmol/L (3.5-5.1); SGOT/AST 28 U/L (14-36); SGPT/ALT 21 U/L (0-35); SODIUM 136 mmol/L (137-145); Total Protein 7.7 g/dL (6.3-8.2)
[2020-09-14] MEDS ORDERED: BENTYL 20 MG PO ONE (03:15)
[2020-09-14] MEDS ORDERED: BENTYL 20 MG ONE (03:30)
[2020-09-14] MEDS ORDERED: Phenergan 25 MG INJ IV ONE (05:06)
[2020-09-14] MEDS ORDERED: Sodium Chloride 0.9% 1000 ML 1,000 ML ONE ×2 (06:47→07:53)
[2020-09-14] MEDS ORDERED: Zofran 4 MG/2 ML VIAL ONE (06:47)
[2020-09-14 08:02] VITALS: BP 115/71; PULSE 88; O2SAT 98
--- NOTE | 2020-09-14 09:04 | XRAY ---
Indication: Vomiting. 5 weeks . Two-dimensional transabdominal early OB ultrasound performed. Comparison: None for this . Uterus anteverted with single intrauterine gestational sac with mean sac diameter 1.32 cm corresponding to 6 weeks 0 days. No pole/heart tones. Left ovary demonstrates 3.1 cm cyst. Right ovary unremarkable. Small cul-de-sac fluid. No suspicious adnexal mass. Impression: Single intrauterine gestational sac measuring 6 weeks 0 days. No pole/heart tones presumed early . Correlate with surgical beta-hCG and follow-up sonogram regarding viability. 3.1 cm left ovary cyst, probably corpus luteal cyst. Comment: Preliminary report was given.
--- NOTE | 2020-09-14 09:06 | XRAY ---
Indication: Vomiting. 5 weeks . Two-dimensional transvaginal early OB ultrasound performed. Comparison: None for this . Uterus anteverted with single intrauterine gestational sac with mean sac diameter 1.22 cm corresponding to 5 weeks 6 days. Yolk sac but no pole/heart tones. Left ovary demonstrates a 4.6 cm anechoic cyst with tiny free fluid. Right ovary unremarkable. No suspicious adnexal mass. Impression: Single intrauterine gestational sac measuring 5 weeks 6 days with yolk sac. No pole/heart tones presumed early . Correlate with surgical beta-hCG and follow-up sonogram regarding viability. Probable left corpus luteal cyst. Comment: Preliminary report was given.
== END 2020-09-14 09:19 | disposition home or self-care (01) ==
LOC: ED 00:56
DX: O21.0 Mild hyperemesis gravidarum (principal); Z3A.01 Less than 8 weeks gestation of pregnancy
CPT/HCPCS: 36000; 36415; 76801; 76817; 80053; 81001; 82150; 83605; 83690; 84702; 85025; 96360; 96361; 96372; 96374; 99285; J2405; J2550; A9270-GY

== ENCOUNTER 2020-12-20 17:39 | Emergency (ER) | payer OTHER ==
--- NOTE | 2020-12-20 19:05 | ERPHSYRPT ---
- History of Present Illness Time Seen by Provider: 12/20/20 19:01 Historian: patient, family Exam Limitations: no limitations Patient Subjective Stated Complaint: Pt states "My upper abdomen has been cramping all day. I recently broke up with my boyfriend whom I have two other children with and I am under allot of stress." Triage Nursing Assessment: Pt presented alert and oriented X 3, skin wpd Pt ambulates with an upright steady gait, able to speak in clear full sentences pt in no apparent respiratory distress. Physician History: pt has 19 week with pain in abd today and prior bleeding but none today. has had yeast infections with some still residual. right breast mild tenderness , without erythema or palpable abscess/induration. general abd tenderness. no peritoneal signs. N but no vomiting at this time. Timing/Duration: today Quality: cramping, fullness, pressure Abdominal Pain Onset Location: epigastric, generalized abdomen Pain Radiation: RLQ, LLQ Severity of Pain-Max: moderate Severity of Pain-Current: moderate Modifying Factors: Improves With: nothing Associated Symptoms: nausea, No vomiting Previous symptoms: different symptoms Allergies/Adverse Reactions: No Known Drug Allergies Allergy (Verified 12/20/20 18:29) Home Medications: Propylthiouracil 50 mg PO DAILY 12/20/20 [History] Sertraline HCl 50 mg [Zoloft 50 mg Tablet] 50 mg PO DAILY 12/20/20 [History] Hx Tetanus, Diphtheria Vaccination/Date Given: Yes Hx Influenza Vaccination/Date Given: Yes Hx Pneumococcal Vaccination/Date Given: No Immunizations Up to Date: Yes Travel Risk - International Travel Have you traveled outside of the country in past 3 weeks: No - Coronavirus Screening Are you exhibiting any of the following symptoms?: No Close contact with a COVID-19 positive Pt in past 14-21 Days: No - Vaccine Status Have you recieved a Covid-19 vaccination: No - Review of Systems Constitutional: No Fever, No Chills Eyes: No Symptoms Ears, Nose, & Throat: No Symptoms Respiratory: No Cough, No Dyspnea Cardiac: No Chest Pain, No Edema, No Syncope Abdominal/Gastrointestinal: No Abdominal Pain, No Nausea, No Vomiting, No Diarrhea Genitourinary Symptoms: No Dysuria Musculoskeletal: No Back Pain, No Neck Pain Skin: No Rash Neurological: No Dizziness, No Focal Weakness, No Sensory Changes Psychological: No Symptoms Endocrine: No Symptoms All Other Systems: Reviewed and Negative - Past Medical History Pertinent Past Medical History: Yes Neurological History: No Pertinent History ENT History: No Pertinent History Cardiac History: No Pertinent History Respiratory History: No Pertinent History Endocrine Medical History: No Pertinent History Musculoskeletal History: No Pertinent History GI Medical History: No Pertinent History History: No Pertinent History Psycho-Social History: Depression Female Reproductive Disorders: No Pertinent History - Past Surgical History Past Surgical History: Yes Neuro Surgical History: No Pertinent History Cardiac: No Pertinent History Respiratory: No Pertinent History Gastrointestinal: No Pertinent History Genitourinary: No Pertinent History Other Surgical History: T&A, nasal passages drilled 12 years ago. - Social History Smoking Status: Former smoker How long have you smoked: years Exposure to second hand smoke: Yes Drug Use: none Patient Lives Alone: No - Female History Hx Last Menstrual Period: 07/21/2020 Hx Now: Yes Expected Date of Delivery: 05/14/21 - Nursing Vital Signs Nursing Vital Signs: Initial Vital Signs Temperature 98.3 F 12/20/20 17:49 Pulse Rate 118 H 12/20/20 17:49 Respiratory Rate 20 12/20/20 17:49 Blood Pressure 118/68 12/20/20 17:49 O2 Sat by Pulse Oximetry 98 12/20/20 17:49 Pain Scale Pain Intensity 6 - Physical Exam General Appearance: no apparent distress, alert Eye Exam: PERRL/EOMI, eyes nml inspection Ears, Nose, Throat Exam: normal ENT inspection, pharynx normal, moist mucous membranes Neck Exam: normal inspection, non-tender, supple, full range of motion Respiratory Exam: normal breath sounds, lungs clear, No respiratory distress Cardiovascular Exam: regular rate/rhythm, normal heart sounds Gastrointestinal/Abdomen Exam: soft, No tenderness, No mass Pelvic Exam: deferred Rectal Exam: deferred Back Exam: normal inspection, normal range of motion, No CVA tenderness, No vertebral tenderness Extremity Exam: normal inspection, normal range of motion, pelvis stable Neurologic Exam: alert, oriented x 3, cooperative, normal mood/affect, nml cerebellar function, sensation nml, No motor deficits Skin Exam: normal color, warm, dry SpO2: 99 - Course Nursing assessment & vital signs reviewed: Yes - Radiology Ultrasound Exam OB Ultrasound: No Torsion/Nml Flow, IUP Ordered Tests: Active Orders 24 hr Category Date Time Status EKG-ER Only STAT Care 12/20/20 19:05 Active IV Insertion STAT Care 12/20/20 19:05 Active OB >14 WKS 1st GESTATION [US] Stat Exams 12/20/20 21:34 Taken AMYLASE Stat Lab 12/20/20 19:29 Completed CBC W DIFF Stat Lab 12/20/20 19:29 Completed CMP Stat Lab 12/20/20 19:29 Completed CULTURE,URINE Stat Lab 12/20/20 20:01 Received HCG, Quantitative (Inhouse) Stat Lab 12/20/20 19:29 Completed LIPASE Stat Lab 12/20/20 19:29 Completed Lactic Acid Stat Lab 12/20/20 19:35 Completed UA W/RFX UR CULTURE Stat Lab 12/20/20 20:01 Completed Lab/Rad Data: Laboratory Result Diagrams 12/20/20 19:29 12/20/20 19:29 Laboratory Results 12/20/20 12/20/20 12/20/20 Range/Units 20:01 19:35 19:29 WBC (4.0-10.5) K/mm3 RBC (4.1-5.4) M/mm3 Hgb (12.0-16.0) gm/dl Hct (35-47) % MCV (78-100) fl MCH (26-32) pg MCHC (32-36) g/dl RDW (11.5-14.0) % Plt Count (150-450) K/mm3 MPV (7.5-11.0) fl Gran % (36.0-66.0) % Eos # (Auto) (0-0.5) Absolute Lymphs (auto) (1.0-4.6) Absolute Monos (auto) (0.0-1.3) Lymphocytes % (24.0-44.0) % Monocytes % (0.0-12.0) % Eosinophils % (0.00-5.0) % Basophils % (0.0-0.4) % Absolute Granulocytes (1.4-6.9) Basophils # (0-0.4) Sodium 138 (137-145) mmol/L Potassium 3.6 (3.5-5.1) mmol/L Chloride 105 (98-107) mmol/L Carbon Dioxide 23 (22-30) mmol/L Anion Gap 14.1 (5-15) MEQ/L BUN 4 L (7-17) mg/dL Creatinine 0.51 L (0.52-1.04) mg/dL Estimated GFR > 60.0 ML/MIN Glucose 82 (74-106) mg/dL Lactic Acid 0.8 (0.4-2.0) Calcium 9.6 (8.4-10.2) mg/dL Total Bilirubin 0.30 (0.2-1.3) mg/dL AST 20 (14-36) U/L ALT 16 (0-35) U/L Alkaline Phosphatase 55 (38-126) U/L Serum Total Protein 7.0 (6.3-8.2) g/dL Albumin 4.1 (3.5-5.0) g/dL Amylase 72 (30-110) U/L Lipase 108 (23-300) U/L Beta HCG, Quant 95023 mIU/ml Urine Color YELLOW (YELLOW) Urine Appearance SLIGHTLY CLOUDY (CLEAR) Urine pH 6.0 (5-6) Ur Specific [place] 1.004 (1.005-1.025) Urine Protein NEGATIVE (Negative) Urine Ketones NEGATIVE (NEGATIVE) Urine Blood NEGATIVE (0-5) Deejay/ul Urine Nitrite NEGATIVE (NEGATIVE) Urine Bilirubin NEGATIVE (NEGATIVE) Urine Urobilinogen NEGATIVE (0-1) mg/dL Ur Leukocyte Esterase TRACE (NEGATIVE) Urine WBC (Auto) 3-5 (0-5) /HPF Urine RBC (Auto) NONE (0-2) /HPF U Epithel Cells (Auto) FEW (FEW) /HPF Urine Bacteria (Auto) PACKED (NEGATIVE) /HPF Urine Culture Reflexed YES (NO) Urine Glucose NEGATIVE (NEGATIVE) mg/dL 12/20/20 Range/Units 19:29 WBC 20.5 H (4.0-10.5) K/mm3 RBC 3.92 L (4.1-5.4) M/mm3 Hgb 13.1 (12.0-16.0) gm/dl Hct 37.4 (35-47) % MCV 95.4 (78-100) fl MCH 33.4 H (26-32) pg MCHC 35.0 (32-36) g/dl RDW 12.5 (11.5-14.0) % Plt Count 265 (150-450) K/mm3 MPV 10.0 (7.5-11.0) fl Gran % 85.6 H (36.0-66.0) % Eos # (Auto) 0.06 (0-0.5) Absolute Lymphs (auto) 2.16 (1.0-4.6) Absolute Monos (auto) 0.71 (0.0-1.3) Lymphocytes % 10.5 L (24.0-44.0) % Monocytes % 3.5 (0.0-12.0) % Eosinophils % 0.3 (0.00-5.0) % Basophils % 0.1 (0.0-0.4) % Absolute Granulocytes 17.53 H (1.4-6.9) Basophils # 0.02 (0-0.4) Sodium (137-145) mmol/L Potassium (3.5-5.1) mmol/L Chloride (98-107) mmol/L Carbon Dioxide (22-30) mmol/L Anion Gap (5-15) MEQ/L BUN (7-17) mg/dL Creatinine (0.52-1.04) mg/dL Estimated GFR ML/MIN Glucose (74-106) mg/dL Lactic Acid (0.4-2.0) Calcium (8.4-10.2) mg/dL Total Bilirubin (0.2-1.3) mg/dL AST (14-36) U/L ALT (0-35) U/L Alkaline Phosphatase (38-126) U/L Serum Total Protein (6.3-8.2) g/dL Albumin (3.5-5.0) g/dL Amylase (30-110) U/L Lipase (23-300) U/L Beta HCG, Quant mIU/ml Urine Color (YELLOW) Urine Appearance (CLEAR) Urine pH (5-6) Ur Specific [place] (1.005-1.025) Urine Protein (Negative) Urine Ketones (NEGATIVE) Urine Blood (0-5) Deejay/ul Urine Nitrite (NEGATIVE) Urine Bilirubin (NEGATIVE) Urine Urobilinogen (0-1) mg/dL Ur Leukocyte Esterase (NEGATIVE) Urine WBC (Auto) (0-5) /HPF Urine RBC (Auto) (0-2) /HPF U Epithel Cells (Auto) (FEW) /HPF Urine Bacteria (Auto) (NEGATIVE) /HPF Urine Culture Reflexed (NO) Urine Glucose (NEGATIVE) mg/dL - Progress Progress: improved, re-examined Progress Note: 12/20/20 23:01 discussed elevated WBC with pt and that undetected abdominal or other pathology could still be evolving to explain her pain and WBC, and also that an undetected abscess could eventual declare itself in the breast although some breast tenderness in may be expected. She understands and prefers outpt f/u with PCP and pain has resolved for now , and she further understands the limitations of the testing performed as above. she has the capacity to make this choice for outpt f/u rather that further testing in ER or hosp at this time. Counseled pt/family regarding: lab results, diagnosis, need for follow-up, rad results - Departure Departure Disposition: Home Clinical Impression: Elevated WBC count, Recurrent UTI, Abdominal pain of unknown cause Condition: Good Critical Care Time: No Referrals: VIJI KAPADIA W[employer] P[employer] INSTALLER [Primary Care Provider] - Instructions: Symptoms, Acute Abdomen (Belly Pain), Adult (DC), Urinary Tract Infection, Adult (DC), Urinary Tract Infections in , Mastalgia (DC) Additional Instructions: we have not found a precise cause for your pain, and there could still be some process evolving to explain this , including appendix or gall bladder , although these areas are not yet tender. , so close follow-up with your DrYonathan is advised. THis is also true for the elevated white blood count which should be rechecked with your DR. There may be an early urinary infection so we will begin treatment. return meantime if pain recurs or other symptoms of concern.
[2020-12-20 19:32] LABS: Absolute Neutrophil Ct (ANC) 17.53 (1.4-6.9); BASOPHIL % 0.1 % (0.0-0.4); Basophil (Absolute #) 0.02 (0-0.4); Eosinophil % 0.3 % (0.00-5.0); Eosinophil (Absolute #) 0.06 (0-0.5); Hematocrit 37.4 % (35-47); Hemoglobin 13.1 gm/dl (12.0-16.0); Lymphocyte (Absolute #) 2.16 (1.0-4.6); Lymphocytes % 10.5 % (24.0-44.0); Mean Cell Volume 95.4 fl (78-100); Mean Corpuscular Hemoglobin 33.4 pg (26-32); Monocyte (Absolute #) 0.71 (0.0-1.3); Monocytes % 3.5 % (0.0-12.0); Neutrophil % 85.6 % (36.0-66.0); Platelet Count 265 K/mm3 (150-450); Red Blood Count 3.92 M/mm3 (4.1-5.4); Red Cell Distribution Width 12.5 % (11.5-14.0); White Blood Count 20.5 K/mm3 (4.0-10.5)
[2020-12-20 20:00] LABS: ALBUMIN 4.1 g/dL (3.5-5.0); ALKALINE PHOSPHATASE 55 U/L (38-126); AMYLASE 72 U/L (30-110); ANION GAP 14.1 MEQ/L (5-15); BLOOD UREA NITROGEN 4 mg/dL (7-17); CHLORIDE 105 mmol/L (98-107); Calcium 9.6 mg/dL (8.4-10.2); Carbon Dioxide 23 mmol/L (22-30); Creatinine 1 0.51 mg/dL (0.52-1.04); EST GLOMERULAR FILTRATION RATE > 60.0 ML/MIN; Glucose 82 mg/dL (74-106); LIPASE 108 U/L (23-300); Potassium 3.6 mmol/L (3.5-5.1); SGOT/AST 20 U/L (14-36); SGPT/ALT 16 U/L (0-35); SODIUM 138 mmol/L (137-145)
[2020-12-20 20:25] LABS: HCG, Quantitative (Inhouse) 24611 mIU/ml
[2020-12-20 20:28] LABS: Appearance SLIGHTLY CLOUDY (CLEAR); Bacteria PACKED /HPF (NEGATIVE); Bilirubin NEGATIVE (NEGATIVE); Blood NEGATIVE Ery/ul (0-5); Epithelial Cells FEW /HPF (FEW); Glucose NEGATIVE (NEGATIVE); Ketones NEGATIVE (NEGATIVE); Leukocyte Esterase TRACE (NEGATIVE); Nitrite NEGATIVE (NEGATIVE); Protein,Urine Dip NEGATIVE (Negative); Specific Gravity 1.004 (1.005-1.025); Urobilinogen NEGATIVE mg/dL (0-1)
[2020-12-20 23:06] VITALS: O2SAT 99
[2020-12-20] MEDS ORDERED: KEFLEX 500 MG PO ONE (23:12)
[2020-12-20] MEDS ORDERED: KEFLEX 500 MG ONE (23:14)
[2020-12-20 23:40] VITALS: BP 118/69; PULSE 74
--- NOTE | 2020-12-21 08:00 | XRAY ---
Indication: Pain and cramping. Two-dimensional OB ultrasound performed. Comparison: September 14, 2020. Again there is a single intrauterine with now heart rate 145 bpm. Anterior placenta without abruption/previa. BPD measures 4.79 cm corresponding to 20 weeks 3 days. HC measures 17.21 cm corresponding to 19 weeks 5 days. AC measures 14.50 cm corresponding to 19 weeks 6 days. FL measures 3.12 cm corresponding to 19 weeks 5 days. BASHIR is 12.9 cm. Impression: Single viable intrauterine with mean gestational age 20 weeks 0 days. Expected date confinement is May 09, 2021. No acute abnormalities. Comment: Preliminary report was given.
== END 2020-12-20 23:18 | disposition home or self-care (01) ==
LOC: ED 17:39
DX: D72.829 Elevated white blood cell count, unspecified (principal); N39.0 Urinary tract infection, site not specified; Z87.440 Personal history of urinary (tract) infections; R10.9 Unspecified abdominal pain
CPT/HCPCS: 36000; 36415; 76805; 80053; 81001; 82150; 83605; 83690; 84702; 85025; 87086; 93005; 99284; A9270-GY

== ENCOUNTER 2021-01-04 16:49 | Observation (INO) | payer OTHER ==
[2021-01-04 17:33] LABS: Appearance CLEAR (CLEAR); Bilirubin NEGATIVE (NEGATIVE); Blood NEGATIVE Ery/ul (0-5); Epithelial Cells RARE /HPF (FEW); Glucose NEGATIVE (NEGATIVE); Ketones NEGATIVE (NEGATIVE); Leukocyte Esterase NEGATIVE (NEGATIVE); Mucus SLIGHT /HPF (NEGATIVE); Nitrite NEGATIVE (NEGATIVE); Protein,Urine Dip NEGATIVE (Negative); Specific Gravity 1.004 (1.005-1.025); Urobilinogen NEGATIVE mg/dL (0-1)
[2021-01-04 17:39] LABS: RBC NONE SEEN /HPF (0-2); WBC NONE SEEN /HPF (0-5)
[2021-01-04 17:40] LABS: Bacteria NONE SEEN /HPF (NEGATIVE)
[2021-01-04 17:48] LABS: Amphetamine,Urine NEGATIVE (NEGATIVE); Barbiturate,Urine NEGATIVE (NEGATIVE); Benzodiazepine,Urine NEGATIVE (NEGATIVE); Cocaine,Urine NEGATIVE (NEGATIVE); Methadone,Urine NEGATIVE (NEGATIVE); Opiate,Urine NEGATIVE (NEGATIVE); PCP,Urine NEGATIVE (NEGATIVE); THC,Urine NEGATIVE (NEGATIVE)
[2021-01-04] MEDS ORDERED: Lactated Ringers 1,000 ML IV ONE ×2 (18:11→18:13)
[2021-01-04 18:46] LABS: Absolute Neutrophil Ct (ANC) 13.43 (1.4-6.9); BASOPHIL % 0.2 % (0.0-0.4); Basophil (Absolute #) 0.03 (0-0.4); Eosinophil % 0.2 % (0.00-5.0); Eosinophil (Absolute #) 0.03 (0-0.5); Hematocrit 35.2 % (35-47); Hemoglobin 12.2 gm/dl (12.0-16.0); Lymphocyte (Absolute #) 1.74 (1.0-4.6); Lymphocytes % 11.1 % (24.0-44.0); Mean Cell Volume 95.7 fl (78-100); Mean Corpuscular Hemoglobin 33.2 pg (26-32); Mean Corpuscular Hgb Concent. 34.7 g/dl (32-36); Mean Platelet Volume 10.2 fl (7.5-11.0); Monocyte (Absolute #) 0.46 (0.0-1.3); Monocytes % 2.9 % (0.0-12.0); Neutrophil % 85.6 % (36.0-66.0); Platelet Count 285 K/mm3 (150-450); Red Blood Count 3.68 M/mm3 (4.1-5.4); Red Cell Distribution Width 12.6 % (11.5-14.0); White Blood Count 15.7 K/mm3 (4.0-10.5)
[2021-01-04 20:12] VITALS: BP 119/65; PULSE 103; O2SAT 100
== END 2021-01-04 20:16 | disposition home or self-care (01) ==
LOC: OB 16:49
PROVIDERS: ADMIT Obstetrics & Gynecology; ATTEND Obstetrics & Gynecology
DX: Z34.82 Encounter for supervision of other normal pregnancy, second trimester (principal); Z3A.21 21 weeks gestation of pregnancy
CPT/HCPCS: 36415; 80307; 81001; 85025; 87086; G0378

== ENCOUNTER 2021-04-29 09:57 | Observation (INO) | payer OTHER ==
[2021-04-29 11:00] VITALS: PULSE 102
[2021-04-29 11:14] VITALS: BP 117/68
== END 2021-04-29 11:35 | disposition home or self-care (01) ==
LOC: WHC 09:57 → OB 10:28
PROVIDERS: ADMIT Obstetrics & Gynecology; ATTEND Obstetrics & Gynecology
DX: Z34.83 Encounter for supervision of other normal pregnancy, third trimester (principal); Z3A.37 37 weeks gestation of pregnancy
CPT/HCPCS: 59025; 59426; G0378

== ENCOUNTER 2021-05-06 09:47 | Observation (INO) | payer OTHER ==
[2021-05-06 10:17] VITALS: BP 118/74
== END 2021-05-06 10:45 | disposition home or self-care (01) ==
LOC: OB 09:47
PROVIDERS: ADMIT Obstetrics & Gynecology; ATTEND Obstetrics & Gynecology
DX: Z34.83 Encounter for supervision of other normal pregnancy, third trimester (principal); Z3A.38 38 weeks gestation of pregnancy
CPT/HCPCS: 59025; G0378

== ENCOUNTER 2021-05-08 06:16 | Inpatient (IN) | payer OTHER ==
[2021-05-08] MEDS ORDERED: Zofran 4 MG/2 ML VIAL IV PRN (07:00)
[2021-05-08 08:13] LABS: Amphetamine,Urine NEGATIVE (NEGATIVE); Barbiturate,Urine NEGATIVE (NEGATIVE); Benzodiazepine,Urine NEGATIVE (NEGATIVE); Cocaine,Urine NEGATIVE (NEGATIVE); Methadone,Urine NEGATIVE (NEGATIVE); Opiate,Urine NEGATIVE (NEGATIVE); PCP,Urine NEGATIVE (NEGATIVE); THC,Urine POSITIVE (NEGATIVE)
[2021-05-08 08:37] LABS: Hematocrit 36.7 % (35-47); Hemoglobin 12.2 gm/dl (12.0-16.0); Mean Cell Volume 94.3 fl (78-100); Mean Corpuscular Hemoglobin 31.4 pg (26-32); Mean Corpuscular Hgb Concent. 33.2 g/dl (32-36); Platelet Count 215 K/mm3 (150-450); Red Blood Count 3.89 M/mm3 (4.1-5.4); Red Cell Distribution Width 13.7 % (11.5-14.0); White Blood Count 15.8 K/mm3 (4.0-10.5)
[2021-05-08 09:04] LABS: BAND 1 % (0.0-2.0); Eosinophil 1 % (0.00-3.0); Lymphocytes 18 % (24-44); Monocyte 6 % (0.0-12.0); Neutrophils 74 % (36.0-66.0); Total Cells Counted 100
[2021-05-08 09:05] LABS: ANISOCYTOSIS 1+; Absolute Neutrophil Ct (ANC) 11.87 (1.4-6.9); Platelet Estimate NORMAL (NORMAL); Polychromasia 1+
[2021-05-08 09:24] LABS: ABO TYPING O; Antibody Screen NEGATIVE (NEGATIVE); RH TYPING POSITIVE
[2021-05-08] MEDS ORDERED: OB EPIDURAL NAROPIN/SUFENTANIL IN NACL EPIDURAL PRN (15:40)
[2021-05-08] MEDS ORDERED: Lactated Ringers 1,000 ML IV ONE (15:40)
[2021-05-08] MEDS ORDERED: Ephedrine Sulfate 50 MG/ML IV PRN (15:40)
[2021-05-08] MEDS ORDERED: STADOL 2 MG IV PRN (15:44)
[2021-05-08] MEDS ORDERED: XYLOCAINE 1% HCL 20 ML MDV IJ PRN (20:00)
[2021-05-08] MEDS: Lactated Ringers 1,000 ML IV SCH (21:13)
[2021-05-08] MEDS: OB EPIDURAL NAROPIN/SUFENTANIL IN NACL EPIDURAL PRN (21:15)
[2021-05-08] MEDS: PTU 50MG PO SCH (22:19)
[2021-05-09] MEDS: OB EPIDURAL NAROPIN/SUFENTANIL IN NACL EPIDURAL PRN (03:25)
[2021-05-09] MEDS: Lactated Ringers 1,000 ML IV SCH (03:39)
[2021-05-09] MEDS: PITOCIN 30 UNITS/ LR 500 ML 30 UNITS/500 ML IV.SOLN. IV SCH (03:40)
[2021-05-09] MEDS ORDERED: Anucort-HC SUPPOSITORY PR PRN (07:09)
[2021-05-09] MEDS ORDERED: LANSINOH 40 GM TOP PRN (07:09)
[2021-05-09] MEDS ORDERED: NORCO 5/325 MG PO PRN (07:09)
[2021-05-09] MEDS ORDERED: Dulcolax 10 MG SUPP PR PRN (07:09)
[2021-05-09] MEDS ORDERED: CORTISONE 1% CREAM TP PRN (07:09)
[2021-05-09] MEDS: Dermoplast Spray TP PRN (09:03)
[2021-05-09] MEDS: TUCKS TP PRN (09:04)
[2021-05-09] MEDS: MOTRIN 400 MG PO PRN ×3 (09:04→22:39)
[2021-05-09] MEDS ORDERED: NON-FORMULARY ITEM (Prenatal Vits W-Ca,Fe,Fa(<1mg) [Prenatal] 1 TAB) PO SCH (10:00)
[2021-05-09] MEDS: TYLENOL EXTRA STRENGTH 500 MG PO PRN ×2 (10:42→14:50)
[2021-05-09 14:40] LABS: HBsAg Screen Negative (Negative)
[2021-05-09] MEDS: PTU 50MG PO SCH ×2 (16:10→22:35)
[2021-05-09] MEDS: ZOLOFT 50 MG TABLET PO SCH (16:11)
[2021-05-09] MEDS: THERAGRAN MULTIVITAMIN PO SCH (16:13)
[2021-05-09] MEDS: Colace 100 MG PO SCH ×2 (16:13→22:35)
[2021-05-10] MEDS: PITOCIN 30 UNITS/ LR 500 ML 30 UNITS/500 ML IV.SOLN. IV SCH (00:16)
[2021-05-10] MEDS: TYLENOL EXTRA STRENGTH 500 MG PO PRN ×2 (02:44→13:31)
[2021-05-10 07:27] LABS: Absolute Neutrophil Ct (ANC) 12.36 (1.4-6.9); BASOPHIL % 0.3 % (0.0-0.4); Basophil (Absolute #) 0.05 (0-0.4); Eosinophil % 1.3 % (0.00-5.0); Eosinophil (Absolute #) 0.23 (0-0.5); Hematocrit 34.2 % (35-47); Hemoglobin 11.6 gm/dl (12.0-16.0); Lymphocyte (Absolute #) 3.43 (1.0-4.6); Lymphocytes % 19.8 % (24.0-44.0); Mean Corpuscular Hemoglobin 31.9 pg (26-32); Mean Corpuscular Hgb Concent. 33.9 g/dl (32-36); Mean Platelet Volume 11.1 fl (7.5-11.0); Monocyte (Absolute #) 1.25 (0.0-1.3); Monocytes % 7.2 % (0.0-12.0); Neutrophil % 71.4 % (36.0-66.0); Platelet Count 216 K/mm3 (150-450); Red Blood Count 3.64 M/mm3 (4.1-5.4); Red Cell Distribution Width 13.8 % (11.5-14.0); White Blood Count 17.3 K/mm3 (4.0-10.5)
[2021-05-10] MEDS: Colace 100 MG PO SCH ×2 (10:21→22:15)
[2021-05-10] MEDS: THERAGRAN MULTIVITAMIN PO SCH (10:21)
[2021-05-10] MEDS: ZOLOFT 50 MG TABLET PO SCH (10:21)
[2021-05-10] MEDS: PTU 50MG PO SCH ×2 (10:22→22:15)
[2021-05-10 16:37] VITALS: O2SAT 97
[2021-05-11] MEDS: MOTRIN 400 MG PO PRN (01:38)
[2021-05-11 05:02] LABS: Hematocrit 32.2 % (35-47); Hemoglobin 10.8 gm/dl (12.0-16.0); Mean Cell Volume 94.4 fl (78-100); Mean Corpuscular Hemoglobin 31.7 pg (26-32); Mean Corpuscular Hgb Concent. 33.5 g/dl (32-36); Mean Platelet Volume 11.2 fl (7.5-11.0); Platelet Count 216 K/mm3 (150-450); Red Blood Count 3.41 M/mm3 (4.1-5.4); Red Cell Distribution Width 13.6 % (11.5-14.0); White Blood Count 15.5 K/mm3 (4.0-10.5)
[2021-05-11 07:16] LABS: BAND 1 % (0.0-2.0); Lymphocytes 11 % (24-44); Monocyte 7 % (0.0-12.0); Neutrophils 81 % (36.0-66.0); Platelet Estimate NORMAL (NORMAL); Total Cells Counted 100
--- NOTE | 2021-05-11 09:04 | PCM.NOTE ---
Date and Time: 05/11/21902 Subjective Assessment: PPD 2 PT RESTING IN BED AND DONG WELL VSS AFEBRILE ABD; SOFT UTERUS; FIRM LOCHIA; MILD A/P SP PPD 2 DC HOME TODAY FU OFFICE 3 WKS OBJECTIVE DATA Vital Signs: Vital Signs - 24 hr Temp Pulse Resp BP Pulse Ox 05/11/21 07:58 98.1 F 82 18 128/80 97 05/11/21 01:53 98.0 F 82 20 121/70 97 05/10/21 20:07 98.4 F 67 17 123/69 97 05/10/21 16:00 98.3 F 85 20 123/67 97 05/10/21 10:00 98.4 F 93 H 20 132/75 98 Pain Assessment - Last Documented Pain Intensity [lower back] 7 Pain Intensity [abdomen] 4 Pain Intensity 4 Pain Scale Used 0-10 Pain Scale Intake and Output: Intake & Output 05/08/21 05/09/21 05/10/21 05/11/21 11:59 11:59 11:59 11:59 Intake Total 7211 1600 1350 Output Total 900 Balance 6311 1600 1350 Weight 86.183 kg Lab Results: Lab Results-Last 24 Hours 05/11/21 Range/Units 04:56 WBC 15.5 H (4.0-10.5) K/mm3 RBC 3.41 L (4.1-5.4) M/mm3 Hgb 10.8 L (12.0-16.0) gm/dl Hct 32.2 L (35-47) % MCV 94.4 (78-100) fl MCH 31.7 (26-32) pg MCHC 33.5 (32-36) g/dl RDW 13.6 (11.5-14.0) % Plt Count 216 (150-450) K/mm3 MPV 11.2 H (7.5-11.0) fl Segmented Neutrophils 81 H (36.0-66.0) % Band Neutrophils 1 (0.0-2.0) % Lymphocytes (Manual) 11 L (24-44) % Monocytes (Manual) 7 (0.0-12.0) % Platelet Estimate NORMAL (NORMAL) RBC Morphology NORMAL
--- NOTE | 2021-05-11 09:08 | PCM.DS ---
Discharge Summary Date of Admission: 05/08/21 20:00 Admitting Physician: CANDICE PERRY DO Consults: Consults on Case 05/09/21 10:00 Navigation ONCE Primary Care Provider: VIJI KAPADIA NP Allergies Allergies No Known Drug Allergies Allergy (Verified 05/06/21 10:06) Hospital Summary - Hospital Course Hospital Course: PT ADMITTED ON MAY 08 FOR CYTOTEC VAGINAL INDUCTION AND HAD 6 DOSES FOLLOWED BY PO DOSES AND SUBSEQUENTLY DELIVERED LIVE BABY BOY WITHOUT COMPLICATION VIA ON MAY 09. PT DURING PERIOD DID WELL AND HAD STABLE HGB LEVEL PRIOR TO BEING DISCHARGED. PT AT THIS TIME STABLE FOR DISCHARGE AND WAS ADVISED TO FU IN OFFICE IN 3 WKS FOR CARE. ALL QUESTIONS ANSWERED TO HER SATISFACTION. - Vitals & Intake/Output Vital Signs: Vital Signs Temperature 98.1 F 05/11/21 07:58 Pulse Rate 82 05/11/21 07:58 Respiratory Rate 18 05/11/21 07:58 Blood Pressure 128/80 05/11/21 07:58 O2 Sat by Pulse Oximetry 97 05/11/21 07:58 Intake & Output: Intake & Output 05/08/21 05/09/21 05/10/21 05/11/21 11:59 11:59 11:59 11:59 Intake Total 7211 1600 1350 Output Total 900 Balance 6311 1600 1350 Weight 86.183 kg - Lab Result Diagrams: 05/11/21 04:56 Lab Results-Last 24 Hrs: Lab Results-Last 24 Hours 05/11/21 Range/Units 04:56 WBC 15.5 H (4.0-10.5) K/mm3 RBC 3.41 L (4.1-5.4) M/mm3 Hgb 10.8 L (12.0-16.0) gm/dl Hct 32.2 L (35-47) % MCV 94.4 (78-100) fl MCH 31.7 (26-32) pg MCHC 33.5 (32-36) g/dl RDW 13.6 (11.5-14.0) % Plt Count 216 (150-450) K/mm3 MPV 11.2 H (7.5-11.0) fl Segmented Neutrophils 81 H (36.0-66.0) % Band Neutrophils 1 (0.0-2.0) % Lymphocytes (Manual) 11 L (24-44) % Monocytes (Manual) 7 (0.0-12.0) % Platelet Estimate NORMAL (NORMAL) RBC Morphology NORMAL Micro Results-Entire Visit: Microbiology 05/08/21 23:00 Urine Culture - Final Urine, Indwelling Catheter NO GROWTH - Procedures and Test Procedures and Tests throughout Hospitalization: Therapy Orders & Screens 05/09/21 07:02 Standby STAT Comment: Final Diagnosis/Problem List - Final Discharge Diagnosis/Problem (1) Vaginal delivery Current Visit: Yes Status: Acute Code(s): O80 - ENCOUNTER FOR FULL-TERM UNCOMPLICATED DELIVERY - Discharge Disposition: Home, Self-Care Condition: Stable Prescriptions: No Action Sertraline HCl 50 mg [Zoloft 50 mg Tablet] 100 mg PO DAILY Propylthiouracil 50 mg PO HS Vits W-Ca,Fe,FA(<1Mg) [] 1 tab PO DAILY Propylthiouracil 50 mg [Ptu 50Mg] 100 mg PO QAM Follow up with: VIJI KAPADIA NP [Primary Care Provider] - CANDICE PERRY DO [ACTIVE STAFF] - 3 weeks (SHOULD FU OFFICE IN 3 WKS FOR CARE)
[2021-05-11] MEDS: Colace 100 MG PO SCH (10:35)
[2021-05-11] MEDS: THERAGRAN MULTIVITAMIN PO SCH (10:35)
[2021-05-11] MEDS: ZOLOFT 50 MG TABLET PO SCH (10:36)
[2021-05-11] MEDS: PTU 50MG PO SCH (10:36)
[2021-05-11] MEDS: Dermoplast Spray TP PRN (13:24)
[2021-05-11] MEDS: TUCKS TP PRN (13:24)
[2021-05-11 15:23] VITALS: BP 110/67; PULSE 69
== END 2021-05-11 18:00 | disposition home or self-care (01) | DRG 807 ==
LOC: OB 06:16 → OBSVTOIN 20:00
PROVIDERS: ADMIT Obstetrics & Gynecology; ATTEND Obstetrics & Gynecology
PROC: 10E0XZZ Delivery of Products of Conception, External Approach (ICD-10-PCS; principal; 2021-05-09)
DX: O80 Encounter for full-term uncomplicated delivery (principal); Z37.0 Single live birth; Z3A.39 39 weeks gestation of pregnancy
CPT/HCPCS: 36415; 59409; 80307; 85025; 86850; 86900; 86901; 87086; 87340; 94799; G0378; J2405; J2590; J2795; A9270-GY

== ENCOUNTER 2022-06-27 14:50 | Emergency (ER) | payer OTHER ==
[2022-06-27 15:39] VITALS: PULSE 80; O2SAT 98
--- NOTE | 2022-06-27 16:41 | ERPHSYRPT ---
- History of Present Illness Time Seen by Provider: 06/27/22 16:35 Source: patient, family Exam Limitations: no limitations Patient Subjective Stated Complaint: C/O bilateral eye pain and swelling. Triage Nursing Assessment: Patient is alert and oriented. Both eyes are very red. Swelling noted around eyes. No drainage noted at this time. Physician History: pt has noted increasing itching and drainage starting with right eye and now both eyes. Did not get anything in the eyes or have any known exposures. No trauma. ant chambers clear, visual javier intact. no FB with eversion. conjunctival irritation noted bilaterally. globes intact. No resp symptoms except minor sore throat , swallowing OK in ER. chest clear without wheezes or stridor. No rash or urticaria but some facial erythema noted. Timing/Duration: day(s) Location: bilateral eyes Severity: moderate Apparent Injury: no Associated Symptoms: burning, itching, redness, matting, No eyelid swelling, No foreign body sensation, No decreased vision, No blurred vision Visual Assistive Devices: Glasses Chemical Exposure: No Trauma: No Welding Arc/Tanning Bed Exposure: No Allergies/Adverse Reactions: No Known Drug Allergies Allergy (Verified 06/27/22 15:20) Home Medications: ARIPiprazole [Aripiprazole] 1 tab PO DAILY 06/27/22 [History] Clonidine HCl 0.1 mg [Clonidine 0.1 mg Tablet] 1 tab PO BID 06/27/22 [History] Hx Tetanus, Diphtheria Vaccination/Date Given: Yes Hx Influenza Vaccination/Date Given: No Hx Pneumococcal Vaccination/Date Given: No Immunizations Up to Date: Yes Travel Risk - International Travel Have you traveled outside of the country in past 3 weeks: No - Coronavirus Screening Are you exhibiting any of the following symptoms?: No Close contact with a COVID-19 positive Pt in past 14-21 Days: No - Vaccine Status Have you recieved a Covid-19 vaccination: Yes Software Systems Engineer: [facility] - Vaccination Dates Date of 2cond Vaccination (if applicable): 2020 - Review of Systems Constitutional: No Fever, No Chills Eyes: Discharge, Eye Redness, Itchy, Tearing, Other ( fuzzy vision clears with blinking) Ears, Nose, & Throat: No Symptoms Respiratory: No Cough, No Dyspnea Cardiac: No Chest Pain, No Edema, No Syncope Abdominal/Gastrointestinal: No Abdominal Pain, No Nausea, No Vomiting, No Diarrhea Genitourinary Symptoms: No Dysuria Musculoskeletal: No Back Pain, No Neck Pain Skin: No Rash Neurological: No Dizziness, No Focal Weakness, No Sensory Changes Psychological: No Symptoms Endocrine: No Symptoms Hematologic/Lymphatic: No Symptoms Immunological/Allergic: No Symptoms All Other Systems: Reviewed and Negative - Past Medical History Pertinent Past Medical History: Yes Neurological History: No Pertinent History ENT History: No Pertinent History Cardiac History: Hypertension Respiratory History: No Pertinent History Endocrine Medical History: Hyperthyroidism Musculoskeletal History: No Pertinent History GI Medical History: No Pertinent History History: No Pertinent History Psycho-Social History: Anxiety, Depression Female Reproductive Disorders: No Pertinent History, Other Other Medical History: recent breast infection that was treated with antibiotics - Past Surgical History Past Surgical History: Yes Neuro Surgical History: No Pertinent History Cardiac: No Pertinent History Respiratory: No Pertinent History Gastrointestinal: No Pertinent History Genitourinary: No Pertinent History Other Surgical History: nasal passages drilled 12 years ago. - Social History Smoking Status: Current every day smoker How long have you smoked: 7 years Exposure to second hand smoke: No Drug Use: none Patient Lives Alone: No - Female History Hx Last Menstrual Period: Last month Hx Now: No (?) - Nursing Vital Signs Nursing Vital Signs: Initial Vital Signs Temperature 98.4 F 06/27/22 15:21 Pulse Rate 80 06/27/22 15:21 Respiratory Rate 18 06/27/22 15:21 Blood Pressure 134/83 06/27/22 15:21 O2 Sat by Pulse Oximetry 98 06/27/22 15:21 Pain Scale Pain Intensity 7 - Physical Exam General Appearance: no apparent distress Vision Acuity Degree Evaluation Phase: Uncorrected Vision Acuity Right Eye: 20/20 Vision Acuity Left Eye: 20/20 Eye Exam: bilateral eye: PERRL, EOMI, conjunctival inflammation, erythema Ears, Nose, Throat Exam: normal ENT inspection, TMs normal, pharynx normal Neck Exam: normal inspection, non-tender, supple, full range of motion Respiratory Exam: normal breath sounds, chest tenderness, lungs clear Cardiovascular Exam: regular rate/rhythm, normal heart sounds, normal peripheral pulses Gastrointestinal Exam: soft, No tenderness, No distention Extremity Exam: normal inspection, normal range of motion Neurologic: alert, oriented x 3, cooperative, 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, normal mood/affect, nml cerebellar function, nml station & gait Skin Exam: normal color, warm, dry, other (erythema around eyes/face), No rash SpO2 Interpretation: normal SpO2: 98 O2 Delivery: Room Air - Course Nursing assessment & vital signs reviewed: Yes - Progress Progress: unchanged Counseled pt/family regarding: diagnosis, need for follow-up - Departure Departure Disposition: Home Clinical Impression: Bilateral conjunctivitis Condition: Good Critical Care Time: No Referrals: TRUONG DE LA ROSA MD [Primary Care Provider] - Follow up/PCP as directed Instructions: Conjunctivitis (Pinkeye) (DC), Conjunctivitis (Noninfectious Pinkeye) (DC) Additional Instructions: WE are treating for both infectious pink eye as well as an allergic cause and providing instruction for both. THerefore follow-up with your Dr. this week is important in case a change in treatment is warranted and because we have not yet identified the cause. Return meantime if not improving, vomiting, fever, visual symptoms or other symptoms or concerns. Use over the counter pataday ( Olopatadine) eye drops in each eye as directed for allergy treatment. We have sent a prescription for infection as well. Prescriptions: Erythromycin Base 3.5 gm [Erythromycin 3.5 GM OPHTH.] 3.5 gm OP QID #1
[2022-06-27 17:07] VITALS: BP 136/80
== END 2022-06-27 17:07 | disposition home or self-care (01) ==
LOC: ED 14:50
DX: H10.9 Unspecified conjunctivitis (principal); I10 Essential (primary) hypertension; Z79.899 Other long term (current) drug therapy; Z72.0 Tobacco use
CPT/HCPCS: 99281

== ENCOUNTER 2024-05-09 12:23 | Observation (INO) | payer OTHER ==
[2024-05-09 13:01] VITALS: BP 120/70; PULSE 109; RESP 14; TEMP 98.5; O2SAT 99
[2024-05-09 13:16] LABS: Appearance Clear (Clear); Bacteria Rare /HPF (None Seen); Bilirubin Negative (Negative); Blood Negative (Negative); Epithelial Cells Moderate /HPF (None Seen); Glucose, Urine Negative (Negative); Hyaline Casts NONE SEEN /LPF (0-2); Ketones Negative (Negative); Leukocyte Esterase Trace (Negative); Nitrite Negative (Negative); Ph 6.5 (4.6-8.0); Protein,Urine Dip Negative (Negative); RBC 0-2 /HPF (0-5); Specific Gravity 1.015 (1.005-1.030); WBC 0-2 /HPF (0-5)
[2024-05-09 13:18] LABS: ADD URINE CULTURE? NO (NO)
== END 2024-05-09 13:46 | disposition home or self-care (01) ==
LOC: OB 12:23
PROVIDERS: ADMIT Family Medicine; ATTEND Family Medicine
DX: Z34.83 Encounter for supervision of other normal pregnancy, third trimester (principal); Z3A.34 34 weeks gestation of pregnancy
CPT/HCPCS: 81001; G0378; G0379

== ENCOUNTER 2024-06-11 04:02 | Inpatient (IN) | payer OTHER ==
[2024-06-11] MEDS: Lactated Ringers 1,000 ML IV SCH (04:52)
[2024-06-11 05:05] LABS: Hematocrit 33.2 % (34.1-44.9); Hemoglobin 11.7 g/dL (11.2-15.7); Mean Cell Volume 93.8 fL (79.4-94.8); Mean Corpuscular Hemoglobin 33.1 pg (25.6-32.2); Mean Corpuscular Hgb Concent. 35.2 g/dL (32.2-35.5); Mean Platelet Volume 9.9 fL (9.4-12.3); Platelet Count 215 x10^3/uL (182-369); Red Blood Count 3.54 x10^6/uL (3.93-5.22); Red Cell Distribution Width 13.2 % (11.7-14.4); White Blood Count 14.3 x10^3/uL (3.98-10.04)
[2024-06-11 05:27] LABS: Amphetamine,Urine NEGATIVE (NEGATIVE); Barbiturate,Urine NEGATIVE (NEGATIVE); Benzodiazepine,Urine NEGATIVE (NEGATIVE); Cocaine,Urine NEGATIVE (NEGATIVE); Methadone,Urine NEGATIVE (NEGATIVE); Opiate,Urine NEGATIVE (NEGATIVE); PCP,Urine NEGATIVE (NEGATIVE); THC,Urine POSITIVE (NEGATIVE)
[2024-06-11] MEDS ORDERED: Reglan 10 MG/2 ML IV SCH (06:00)
[2024-06-11 06:01] LABS: ABO TYPING O; Antibody Screen NEGATIVE (NEGATIVE); RH TYPING POSITIVE
[2024-06-11] MEDS: SOD CITRATE-CITRIC ACID SOLN PO SCH (06:28)
[2024-06-11] MEDS: Pepcid 20 MG VIAL IV SCH (06:28)
[2024-06-11] MEDS: CEFAZOLIN 2 GM/100 ML NaCl 2 GM/100 ML IVPB IV SCH (06:28)
[2024-06-11] MEDS ORDERED: Astramorph-Pf 5 MG/10 ML ONE (06:44)
[2024-06-11] MEDS ORDERED: PHENYLEPHRINE HCL ONE (06:44)
[2024-06-11] MEDS ORDERED: Zofran 4 MG/2 ML VIAL ONE (07:05)
[2024-06-11] MEDS ORDERED: Pitocin 10 UNITS/ML ONE (07:35)
[2024-06-11] MEDS ORDERED: TORAdol 30 mg Injection ONE (07:38)
[2024-06-11] MEDS ORDERED: Decadron 4 MG INJ ONE (07:38)
[2024-06-11] MEDS ORDERED: BENADRYL 50 MG/ML ONE (07:47)
[2024-06-11] MEDS ORDERED: Marcaine 0.5%/Epinephrine 10 ML ONE (07:59)
[2024-06-11] MEDS ORDERED: Lactated Ringers 1,000 ML IV ONE (08:03)
[2024-06-11] MEDS ORDERED: Zofran 4 MG/2 ML VIAL IV PRN (09:58)
[2024-06-11] MEDS ORDERED: BENADRYL 50 MG/ML IV PRN (09:58)
[2024-06-11] MEDS ORDERED: DEMEROL 50 MG IV PRN (09:58)
[2024-06-11] MEDS ORDERED: HOLD NARCOTIC ANALGESICS AND SEDATIVES X24 HR MC PRN (09:58)
[2024-06-11] MEDS ORDERED: Narcan 0.4 MG/ML IV PRN (09:58)
[2024-06-11] MEDS ORDERED: Nubain 10 MG/ML IV PRN (09:58)
[2024-06-11] MEDS ORDERED: MORPHINE SULFATE 2 MG INJ IV PRN (09:58)
[2024-06-11] MEDS: CLARITIN 10 MG PO PRN (10:42)
[2024-06-11] MEDS: Mylicon 80MG PO PRN (10:43)
[2024-06-11] MEDS: Dextrose 5%-Lr IV Solution 1000 ML 1,000 ML IV SCH (10:44)
[2024-06-11] MEDS: LANSINOH 40 GM TOP PRN (10:45)
[2024-06-11 10:58] LABS: Appearance Clear (Clear); Bacteria Rare /HPF (None Seen); Bilirubin Negative (Negative); Blood Negative (Negative); Epithelial Cells Few /HPF (None Seen); Glucose, Urine Negative (Negative); Ketones Negative (Negative); Leukocyte Esterase Trace (Negative); Nitrite Negative (Negative); Ph 7.5 (4.6-8.0); Protein,Urine Dip Negative (Negative); RBC 0-2 /HPF (0-5); Urobilinogen 0.2 mg/dL (0.2)
[2024-06-11] MEDS: FERREX 150 PO SCH (19:04)
[2024-06-11] MEDS: MOTRIN 400 MG PO PRN (20:04)
[2024-06-11] MEDS: PERCOCET TABLET 5/325MG PO PRN (21:05)
[2024-06-11] MEDS: Docusate Sodium 100 MG PO SCH (22:00)
[2024-06-12 05:12] LABS: Absolute Neutrophil Ct (ANC) 12.08 x10^3/uL (1.56-6.13); BASOPHIL % 0.3 % (0.1-1.2); Basophil (Absolute #) 0.05 x10^3/uL (0.01-0.08); Eosinophil % 0.6 % (0.7-5.8); Hemoglobin 9.6 g/dL (11.2-15.7); IMMATURE GRAN # 0.15 x10^3u/L (0.001-0.031); IMMATURE GRAN % 0.9 % (0.001-0.429); Lymphocyte (Absolute #) 3.41 x10^3/uL (1.18-3.74); Lymphocytes % 20.4 % (19.3-51.7); Mean Cell Volume 94.6 fL (79.4-94.8); Mean Corpuscular Hemoglobin 32.4 pg (25.6-32.2); Mean Corpuscular Hgb Concent. 34.3 g/dL (32.2-35.5); Mean Platelet Volume 9.6 fL (9.4-12.3); Monocyte (Absolute #) 0.95 x10^3/uL (0.24-0.86); Monocytes % 5.7 % (4.7-12.5); Neutrophil % 72.1 % (34.0-71.1); Platelet Count 172 x10^3/uL (182-369); Red Blood Count 2.96 x10^6/uL (3.93-5.22); Red Cell Distribution Width 13.2 % (11.7-14.4); White Blood Count 16.7 x10^3/uL (3.98-10.04)
[2024-06-12] MEDS ORDERED: TYLENOL EXTRA STRENGTH 500 MG PO PRN (09:59)
--- NOTE | 2024-06-12 11:31 | OP ---
SURGERY DATE/TIME: 06/11/2024 [id number] PREOPERATIVE DIAGNOSES: 1) Breech presentation. 2) Term intrauterine . POSTOPERATIVE DIAGNOSES: 1) Breech presentation. 2) Term intrauterine . PROCEDURE: Primary low transverse section. SURGEON: Cruz Moore MD. ANESTHESIA: Spinal by Moisés Adames CRNA. QUANTITATIVE BLOOD LOSS: 580 mL. SPECIMENS: None. DESCRIPTION OF PROCEDURE AND FINDINGS: After informed written consent was obtained, the patient was taken to the operating room. She underwent spinal anesthesia and was prepped and draped in the usual sterile fashion. After adequate level of anesthesia was assessed, a low transverse skin incision was made by a knife and carried down through the subcutaneous fat to the level of the fascia. Fascia was nicked on both sides of the midline, extended into horizontal using curved Reddy scissors. The superior free edge of the fascia was grasped with Chhaya clamps. The underlying rectus muscles were dissected free. The same was repeated inferiorly. Peritoneal cavity was opened and extended into horizontal bluntly. Then, a bladder flap was created and reflected over the lower uterine segment. Horizontal uterine incision was made by a knife and carried down to the level of the amniotic membranes which were carefully artificially ruptured. Clear fluid was encountered, and a viable female was delivered from breech presentation with a loose nuchal cord x1 which was reduced at the time of delivery. Oropharynx and nares were bulb suctioned free. Cord was clamped and cut. Baby had a good spontaneous cry and respirations. Baby was handed off to the waiting nursery team. Then, the uterus was exteriorized after the placenta was manually extracted. The uterine cavity was sponge curetted, cleaned with a lap sponge. Next, the uterine incision was closed with #1 chromic in a running locked fashion. Good hemostasis and good closure were achieved to that level. Posterior cul-de-sac was wiped free of blood and clot with a moist lap sponge, and the uterus was returned to the peritoneal cavity. Lateral gutters were wiped free of blood and clot with a moist lap sponge. There was a small area of oozing in the middle aspect of the incision on the lower aspect of the suture line. [id number] #1 chromic was placed which provided good hemostasis. No other issues were encountered upon inspection at that point. Next, the fascia was closed with 0 Vicryl in a running fashion. Good closure and good hemostasis were achieved at that level. Subcutaneous fat was irrigated with warm sterile saline, and any areas of bleeding were cauterized with electrocautery. Finally, the skin layer was closed with 4-0 undyed Vicryl in a running subcuticular fashion. Steri-Strips and an occlusive dressing were placed over the incision. The patient was transferred to the recovery room in good condition.
[2024-06-12] MEDS: NORCO 5/325 MG PO PRN (12:54)
[2024-06-13 04:24] LABS: Absolute Neutrophil Ct (ANC) 10.47 x10^3/uL (1.56-6.13); BASOPHIL % 0.4 % (0.1-1.2); Basophil (Absolute #) 0.06 x10^3/uL (0.01-0.08); Eosinophil % 1.7 % (0.7-5.8); Eosinophil (Absolute #) 0.25 x10^3/uL (0.04-0.36); Hematocrit 28.1 % (34.1-44.9); Hemoglobin 9.8 g/dL (11.2-15.7); IMMATURE GRAN % 0.7 % (0.001-0.429); Lymphocyte (Absolute #) 2.71 x10^3/uL (1.18-3.74); Lymphocytes % 18.9 % (19.3-51.7); Mean Cell Volume 94.6 fL (79.4-94.8); Mean Corpuscular Hgb Concent. 34.9 g/dL (32.2-35.5); Monocyte (Absolute #) 0.74 x10^3/uL (0.24-0.86); Monocytes % 5.2 % (4.7-12.5); Neutrophil % 73.1 % (34.0-71.1); Platelet Count 183 x10^3/uL (182-369); Red Blood Count 2.97 x10^6/uL (3.93-5.22); Red Cell Distribution Width 13.3 % (11.7-14.4); White Blood Count 14.3 x10^3/uL (3.98-10.04)
[2024-06-13 08:46] VITALS: RESP 20; O2SAT 99
[2024-06-13 09:15] LABS: RPR Non Reactive (Non Reactive)
--- NOTE | 2024-06-13 14:53 | PCM.DS ---
Discharge Summary Date of Admission: 06/11/24 04:02 Admitting Physician: TRUONG DE LA ROSA Consults: Consults on Case 06/11/24 09:58 Notify Anesthesia Provider PRN 06/11/24 11:27 Navigation ONCE Primary Care Provider: TRUONG DE LA ROSA Allergies Allergies No Known Drug Allergies Allergy (Verified 06/11/24 05:20) Hospital Summary - Hospital Course Hospital Course: patient had a scheduled primary at 39wks for breech presentation. no complications, doing well , pain controlled, mild lochia and ambulating and tolerating po. Juanis is and well bonded with her Beti - Vitals & Intake/Output Vital Signs: Vital Signs Temperature 97.3 F 06/13/24 08:00 Pulse Rate 76 06/13/24 08:00 Respiratory Rate 20 06/13/24 08:00 Blood Pressure 122/78 06/13/24 08:00 O2 Sat by Pulse Oximetry 99 06/13/24 08:00 Intake & Output: Intake & Output 06/11/24 06/12/24 06/13/24 06/14/24 11:59 11:59 11:59 11:59 Intake Total 1625 Output Total 850 2300 Balance -850 -675 Weight 78.925 kg - Lab Result Diagrams: 06/13/24 04:18 Lab Results-Last 24 Hrs: Lab Results-Last 24 Hours 06/12/24 06/13/24 Range/Units 05:05 04:18 WBC 14.3 H (3.98-10.04) x10^3/uL RBC 2.97 L (3.93-5.22) x10^6/uL Hgb 9.8 L (11.2-15.7) g/dL Hct 28.1 L (34.1-44.9) % MCV 94.6 (79.4-94.8) fL MCH 33.0 H (25.6-32.2) pg MCHC 34.9 (32.2-35.5) g/dL RDW 13.3 (11.7-14.4) % Plt Count 183 (182-369) x10^3/uL MPV 10.0 (9.4-12.3) fL Gran % 73.1 H (34.0-71.1) % Immature Gran % (Auto) 0.7 H (0.001-0.429) % Nucleat RBC Rel Count 0.0 (0.00-0.2) % Eos # (Auto) 0.25 (0.04-0.36) x10^3/uL Immature Gran # (Auto) 0.10 H (0.001-0.031) x10^3u/L Absolute Lymphs (auto) 2.71 (1.18-3.74) x10^3/uL Absolute Monos (auto) 0.74 (0.24-0.86) x10^3/uL Absolute Nucleated RBC 0.00 (0.00-0.012) x10^3u/L Lymphocytes % 18.9 L (19.3-51.7) % Monocytes % 5.2 (4.7-12.5) % Eosinophils % 1.7 (0.7-5.8) % Basophils % 0.4 (0.1-1.2) % Absolute Granulocytes 10.47 H (1.56-6.13) x10^3/uL Basophils # 0.06 (0.01-0.08) x10^3/uL RPR Non Reactive (Non Reactive) Micro Results-Entire Visit: Microbiology 06/11/24 09:40 Urine Culture - Final Catherized NO GROWTH - Procedures and Test Procedures and Tests throughout Hospitalization: Therapy Orders & Screens 06/11/24 08:07 Standby ROUTINE Comment: Discharge Exam General Appearance: no apparent distress Respiratory Exam: normal breath sounds, lungs clear, No respiratory distress Cardiovascular Exam: regular rate/rhythm, normal heart sounds Gastrointestinal/Abdomen Exam: soft, other (optifoam dressing clean, dry, intact.) Extremity Exam: normal inspection, normal range of motion Skin Exam: normal color, warm, dry Final Diagnosis/Problem List - Final Discharge Diagnosis/Problem (1) delivery delivered Current Visit: Yes Status: Acute Code(s): O82 - ENCOUNTER FOR DELIVERY WITHOUT INDICATION (2) (infant) Current Visit: Yes Status: Acute Code(s): Z78.9 - OTHER SPECIFIED HEALTH STATUS - Discharge Disposition: Home, Self-Care Condition: Stable Prescriptions: New Hydrocodone/Acetaminophen [Hydrocodone-Acetamin 7.5-325] 1 each PO Q6H PRN PRN #28 tablet MDD 4 PRN Reason: Moderate To Severe Pain Instructions: Deciding to breastfeed, Pumping and storing breast milk, , Common problems, Health and nutrition during , Bottle feeding your baby Additional Instructions: return to OB department on TuesdayJun 15 for a follow up. You don't need an appointment, but may want to call before you come. You and Beti have an a ppointment with Dr De La Rosa on Jun 18 at 9:30 and 10 a.m. Follow up with: TRUONG DE LA ROSA MD [Primary Care Provider] - 06/18/24 9:30 am Forms: OB Discharge Instructions
[2024-06-13] MEDS: Adacel Vial IM ONE (15:36)
[2024-06-13 15:46] VITALS: BP 127/80; PULSE 98; TEMP 99.4
== END 2024-06-13 16:15 | disposition home or self-care (01) | DRG 788 ==
LOC: OB 04:02 → OBSVTOIN 04:02
PROVIDERS: ADMIT Family Medicine; ATTEND Family Medicine
PROC: 10D00Z1 Extraction of Products of Conception, Low, Open Approach (ICD-10-PCS; principal; 2024-06-11)
DX: O64.1XX0 Obstructed labor due to breech presentation, not applicable or unspecified (principal); O69.81X0 Labor and delivery complicated by cord around neck, without compression, not applicable or unspecified; Z3A.39 39 weeks gestation of pregnancy; Z37.0 Single live birth
CPT/HCPCS: 36415; 64488; 76937; 80307; 81001; 85025; 85027; 85730; 86592; 86850; 86900; 86901; 87086; 90715; 94799; J0690; J1100; J1200; J1885; J2274; J2371; J2405; J2590; A9270-GY